=== PATIENT | male | born 1990 | race Caucasian/White ===

== ENCOUNTER 2017-02-11 15:40 | Inpatient (IN) | payer MEDICAID, OTHER ==
--- NOTE | 2017-02-11 16:57 | EDPHY ---
H & P Stated Complaint: cellulitis l arm/elbow x 4 days Source: Patient Exam Limitations: No limitations - Personal History Current Tetanus/Diphtheria Vaccine: No - Medical/Surgical History Hx Asthma: No Hx Chronic Respiratory Disease: No Hx Diabetes: No Hx Cardiac Disease: No Hx Renal Disease: No Hx Cirrhosis: No Hx Alcoholism: No Hx HIV/AIDS: No Hx Splenectomy or Spleen Trauma: No Other PMH: denies - Family History Significant Family History: No pertinent family hx - Social History Smoking Status: Never smoked Time Seen by Provider: 02/11/17 16:10 HPI/ROS: CHIEF COMPLAINT: left arm pain HISTORY OF PRESENT ILLNESS: 26-year-old male presents emergency department complaining of left arm pain worsening over the past 6 days. Patient reports 8 days ago got a small burn on his arm from an of an at work, 6 days ago he was lifting something heavy and felt a mild strain in his inner left upper arm. Patient reports over the last 5 days he has increasing redness, pain, swelling. He reports intermittent fevers over the last 5 days up to 101. Patient is [id number], he denies any trauma. Nausea, vomiting or diarrhea, no abdominal pain. No numbness or tingling in his arm. Patient denies IV drug use. REVIEW OF SYSTEMS: A comprehensive 10 point review of systems is otherwise negative aside from elements mentioned in the history of present illness. (Keke Maldonado) - Physical Exam Exam: Physical Exam Gen: Alert and Oriented, NAD HEENT: PERRL, moist mucous membranes NECK: no meningismus CV: regular rate and regular rhythm PULM: CTAB, no wheezes ABDOMEN: soft, non tender to palpation, BS present BACK: No CVA tenderness NEURO: Neurologically grossly intact EXTREMITIES: Left upper arm with diffuse swelling, induration, erythema that extends down into elbow and midway down forearm, tenderness to palpation. Patient lacks 10 degrees of extension and 20 degrees of flexion in elbow due to pain. 2+ radial pulses, sensation intact to light touch SKIN: 1 cm x 1 cm area of erythema with central scab to left upper arm PSYCH: answers questions appropriately. (Keke Maldonado) Constitutional: Initial Vital Signs Temperature (C) 36.6 C 02/11/17 15:44 Heart Rate 80 02/11/17 15:44 Respiratory Rate 16 02/11/17 15:44 Blood Pressure 129/65 H 02/11/17 15:44 O2 Sat (%) 98 02/11/17 15:44 O2 Delivery Mode Room Air Allergies/Adverse Reactions: No Known Allergies Allergy (Verified 02/11/17 15:43) Home Medications: Medication Instructions Recorded NK [No Known Home Meds] 02/11/17 Medical Decision Making - Diagnostics Imaging: Discussed imaging studies w/ ornithology teacher Radiologist, I viewed and interpreted images myself - Diagnostics Imaging Results: Imaging Impressions Upper Extremity MRI 02/11/17 17:32 Impression: Large lobulated septated fluid collection between the humerus and the anterior and medial aspect of the triceps muscle as above. With the thick rim enhancement and adjacent significant inflammatory change in the muscle and reactive lymphadenopathy of the axilla, this is more likely abscess than hematoma. Significant adjacent myositis of the surrounding musculature, most severe in the triceps. Additionally, there may be a component of partial tear of the proximal triceps. Mild glenohumeral joint effusion which may be reactionary. Enlarged left axillary lymph nodes. Cellulitis. ED Course/Re-evaluation: IV established, CBC, chemistry panel, blood cultures ordered. I have ordered an ultrasound to rule out a DVT and an x-ray to evaluate for gas. CBC shows an elevated white blood cell count at 27,000, chemistry panel unremarkable aside from a potassium of 3.2. Blood cultures are pending. Ultrasound is negative for DVT though shows a fluid collection. X-ray shows no evidence of subcutaneous gas. MRI is ordered to further evaluate fluid collection and rule out necrotizing fasciitis. The patient is given 1 g of vancomycin. MRI results shows a fluid collection 20 cm x 7 cm x 5 cm from shoulder to elbow on left arm. 810pm- Dr. Hernández consulted. He will come see the patient. 9pm-patient will be going to the OR to left arm debrided. (Keke Maldonado) Differential Diagnosis: Diagnosis considered but not limited to hematoma, abscess, necrotizing fasciitis , muscle strain. (Keke Maldonado) Other Provider: I personally examined this patient and supervised the treatment plan. (Ayush Roblero) - Data Points Laboratory Results: Laboratory Results 02/11/17 17:05 02/11/17 17:05 Medications Given: Discontinued Medications Hydromorphone HCl (Dilaudid) 0.5 mg IVP EDNOW ONE Stop: 02/11/17 17:43 Last Admin: 02/11/17 18:00 Dose: 0.5 mg Hydromorphone HCl (Dilaudid) 1 mg IVP EDNOW ONE Stop: 02/11/17 21:00 Last Admin: 02/11/17 21:13 Dose: 1 mg Vancomycin/Sodium Chloride (Vancomycin 1 Gm (Premix)) 250 mls @ 250 mls/hr IV EDNOW ONE PRN Reason: Protocol Stop: 02/11/17 18:26 Last Admin: 02/11/17 17:59 Dose: 250 mls Lorazepam (Ativan Injection) 1 mg IVP EDNOW ONE Stop: 02/11/17 17:44 Last Admin: 02/11/17 18:00 Dose: 1 mg Ondansetron HCl (Zofran) 4 mg IVP ONCE ONE Stop: 02/11/17 22:04 Last Admin: 02/11/17 21:40 Dose: 4 mg Departure - Departure Disposition: To OP Cath/Surgery Clinical Impression: Abscess of left upper extremity Condition: Fair
[2017-02-11 17:15] LABS: ADD DIFF? YES; ADD MORPH? NO; ADD SCAN? NO; ATYPICAL LYMPHOCYTE FLAG 20 (0-99); FRAGMENT RBC FLAG 0 (0-99); HEMOGLOBIN 12.6 g/dL (13.7-17.5); LEFT SHIFT FLG 80 (0-99); LIPEMIA HEMOLYSIS FLAG 90 (0-99); MEAN CELL HEMOGLOBIN 26.9 pg (27.9-34.1); MEAN CELL HEMOGLOBIN CONCENTR. 34.1 g/dL (32.4-36.7); MEAN CELL VOLUME 79.1 fL (81.5-99.8); MEAN PLATELET VOLUME 8.8 fL (8.7-11.7); PLATELET CLUMPS FLAG 10 (0-99); PLATELET COUNT 293 10^3/uL (150-400); RED BLOOD CELL COUNT 4.68 10^6/uL (4.40-6.38); RED CELL DISTRIBUTION WIDTH 14.3 % (11.5-15.2)
[2017-02-11] MEDS ORDERED: VANCOMYCIN HCL/NORMAL SALINE 250 ML IV ONE (17:27)
[2017-02-11 17:28] LABS: ANION GAP 10 mEq/L (8-16); CALCIUM 8.9 mg/dL (8.5-10.4); CARBON DIOXIDE 29 mEq/l (22-31); CHLORIDE 100 mEq/L (97-110); CREATININE 0.7 mg/dL (0.7-1.3); GLOMERULAR FILTRATION RATE > 60; GLUCOSE 97 mg/dL (70-100); POTASSIUM 3.2 mEq/L (3.5-5.2); SODIUM 139 mEq/L (134-144)
[2017-02-11] MEDS ORDERED: HYDROmorphONE/DILAUDID 1 MG/ML SYR IVP ONE ×2 (17:42→20:59)
[2017-02-11] MEDS ORDERED: LORazepam 2 MG/ML INJ IVP ONE (17:43)
[2017-02-11 18:03] LABS: HYPOCHROMIA 1+; MICROCYTES 1+; TOXIC GRANULATION PRESENT; TOXIC VACUOLIZATION PRESENT
[2017-02-11 18:04] LABS: PLATELET ESTIMATE ADEQUATE (ADEQ)
[2017-02-11] MEDS ORDERED: GADOBUTROL 10 ML VIAL IVP ONE (19:11)
[2017-02-11] MEDS ORDERED: ONDANSETRON 4 MG/2 ML VIAL ONE (21:42)
[2017-02-11] MEDS ORDERED: ONDANSETRON 4 MG/2 ML VIAL IVP ONE (22:03)
[2017-02-11] MEDS ORDERED: MIDAZOLAM 2 MG/2 ML VIAL ONE (22:05)
[2017-02-11] MEDS ORDERED: PROPOFOL 200 MG/20 ML VIAL ONE (22:11)
[2017-02-11] MEDS ORDERED: fentaNYL 100 MCG/2 ML INJ ONE ×4 (22:11→23:52)
[2017-02-11] MEDS ORDERED: METOCLOPRAMIDE 10 MG/2 ML VIAL ONE (22:12)
[2017-02-11] MEDS ORDERED: LIDOCAINE 2% 100 MG/5 ML SYR ONE (22:12)
[2017-02-11] MEDS ORDERED: RANITIDINE 50 MG/2 ML VIAL ONE (22:12)
--- NOTE | 2017-02-12 00:06 | POSTOPPROG ---
Post Op Note Date of Operation: 02/12/17 Surgeon: Fredo Hernández Anesthesiologist: francisca Anesthesia: LMA Pre-op Diagnosis: left arm inramuscular abscess Post-op Diagnosis: same Indication: same Procedure: drainage complex intramuscular abscess of arma and axilla Findings: same Inf/Abcess present in the surg proc area at time of surgery?: Yes Depth: Deep Incisional (Fascial) EBL: 100-500 Complications: none Drains: [place]
[2017-02-12] MEDS ORDERED: fentaNYL 100 MCG/2 ML INJ ONE (00:29)
[2017-02-12] MEDS ORDERED: LR 1,000 ML IV SCH (00:30)
--- NOTE | 2017-02-12 00:37 | GPN ---
[f rep st] PROCEDURE NOTE PREOP DIAGNOSIS: Complex abscess, left arm, left axilla. POSTOP DIAGNOSIS: Complex abscess, left arm, left axilla. OPERATION: Exploration and drainage of intramuscular and submuscular abscesses in left arm extending in the left axilla. INDICATIONS: The patient is a 26-year-old male, who has had progressive arm pain and swelling for several days, unclear etiology. MRI preoperatively showed complex abscess extending almost from the elbow all the way up in the medial arm slightly posterior and extending into the axilla. PROCEDURE: General anesthesia, patient positioned supine. Left shoulder bump and the arm extended 90 degrees. Aspiration with a needle in the upper arm revealed purulence, an incision was made several inches in length. Subcutaneous fat divided and the fascia and muscle was identified. The aspiration needle showed the pus was under the muscle; therefore, it was perforated with a small clamp getting into a large pus pocket. This was enlarged such that I could put a finger in there and this ran cephalad and inferiorly. This cavity was bluntly developed and several additional incisions were made in an effort to avoid a continuous incision from axilla to elbow. All gross purulence was evacuated and the highest incision that was made, which was the 3rd incision, allowed the examining finger to go up under the pectoralis major and feel the depth of the cavity in the axilla. 6 L of overhead irrigation was then used to copiously rinse out the abscess cavities. After this, [place] drains were run through these incisions from the elbow up to the mid arm and then from the mid arm up around t the axilla and then an additional [place] placed in the upper incision. The wounds were then packed with 4x4's, wrapped in multiple Kerlix and Rajat wraps. The patient tolerated the procedure well. /[id number]/MODL MTDD
[2017-02-12] MEDS: HYDROmorphONE/DILAUDID 1 MG/ML SYR IVP PRN ×2 (01:28→04:26)
[2017-02-12] MEDS: HYDROCODONE/APAP 5/325 TAB PO PRN ×3 (01:32→21:56)
[2017-02-12] MEDS: ONDANSETRON 4 MG/2 ML VIAL IVP PRN ×2 (01:50→11:07)
[2017-02-12 05:20] LABS: HEMATOCRIT 31.8 % (40.0-51.0); HEMOGLOBIN 10.9 g/dL (13.7-17.5); MEAN CELL HEMOGLOBIN 27.1 pg (27.9-34.1); MEAN CELL HEMOGLOBIN CONCENTR. 34.3 g/dL (32.4-36.7); MEAN CELL VOLUME 79.1 fL (81.5-99.8); RED BLOOD CELL COUNT 4.02 10^6/uL (4.40-6.38); RED CELL DISTRIBUTION WIDTH 14.1 % (11.5-15.2)
[2017-02-12] MEDS: VANCOMYCIN HCL/NORMAL SALINE 250 ML IV SCH ×2 (05:44→17:30)
--- NOTE | 2017-02-12 06:37 | SOAPPROG ---
SOAP Progress Note Assessment/Plan: Assessment: Plan: Subjective: 1 day post op drainage complex intramuscular abscess l arm, axilla dressing intact. afebrile despite wbc 30 k gram stain shows gpd's on vanco cont antibioitcs. check ct in am to rule out undrained fluid collections, return to or for washout.. Objective: Vital Signs Temp Pulse Resp BP Pulse Ox 36.5 C 79 16 129/68 H 99 02/12/17 03:45 02/12/17 03:45 02/12/17 03:45 02/12/17 03:45 02/12/17 03:45 Microbiology 02/11/17 22:53 Gram Stain - Final Arm - Swab 02/11/17 22:53 Mycobacterial Smear (WILLARD) - Final Arm - Swab Mycobacterial Culture - Final Laboratory Results 02/12/17 05:02 02/11/17 02/12/17 02/13/17 05:59 05:59 05:59 Intake Total 2706 Output Total 850 Balance 1856 ICD10 Worksheet Patient Problems: Problems Problem Status Onset Abscess of left upper extremity Acute
--- NOTE | 2017-02-12 06:42 | SOAPPROG ---
SOAP Progress Note Assessment/Plan: Assessment: Plan: Objective: Vital Signs Temp Pulse Resp BP Pulse Ox 36.5 C 79 16 129/68 H 99 02/12/17 03:45 02/12/17 03:45 02/12/17 03:45 02/12/17 03:45 02/12/17 03:45 Microbiology 02/11/17 22:53 Gram Stain - Final Arm - Swab 02/11/17 22:53 Mycobacterial Smear (WILLARD) - Final Arm - Swab Mycobacterial Culture - Final Laboratory Results 02/12/17 05:02 02/11/17 02/12/17 02/13/17 05:59 05:59 05:59 Intake Total 2706 Output Total 850 Balance 1856 note- pt anemic on admit with hct 37, mcv 79, abdnormal rbc morphology. no explanation. stes he has been eating poorly because of financial concrns. ICD10 Worksheet Patient Problems: Problems Problem Status Onset Abscess of left upper extremity Acute
[2017-02-12 17:54] LABS: % SATURATION 12 % (20-55); TOTAL IRON BINDING CAPACITY 173 ug/dL (260-490)
[2017-02-12 19:28] LABS: COLOR COLORLESS; LEUKOCYTE ESTERASE,URINE NEGATIVE (NEGATIVE); NITRITE,URINE NEGATIVE (NEGATIVE)
--- NOTE | 2017-02-12 21:24 | GCON ---
[f rep st] CONSULTATION INFECTIOUS DISEASE CONSULTATION DATE OF CONSULTATION: 02/12/2017 REFERRING PHYSICIAN: Fredo Hernández MD REASON FOR CONSULTATION: Left upper extremity abscess. HISTORY OF PRESENT ILLNESS: A 26-year-old male who was in his usual state of health until approximately 6 days prior to admission when he started developing progressively worsening left arm pain. This was preceded by picking up a large container of ice cream and hurting his arm. Simultaneously overlapping this, the symptoms were nasal congestion, sore throat, and malaise. His left arm continued to increase in size and became more painful, and he developed fevers to 102 with associated malaise. Patient delayed evaluation in the emergency room for fear of cough associated with this, but he subsequently presented last night and was found to have an enormous abscess in the longest dimension of 20 cm. Patient also was found to have a significant leukocytosis. Patient was fairly rapidly taken to the operating room where he underwent extensive debridement of his left upper arm. G stain from the sample in the OR was positive for gram-positive cocci. Patient was empirically started on IV vancomycin. Patient feels better. In addition to infection in his left upper extremity, patient has had 2 years of testicular pain and dysuria of unclear etiology. He has been seen by multiple urologists without a specific diagnosis. Patient has had unprotected sex and possibly had exposure to chlamydia several years ago. Patient is foggy regarding potential treatment. In addition, patient was noted to have a microcytic anemia on lab work and questioning directed regarding this finding includes chronic anorexia and some mid epigastric pain. He denies bright red blood per rectum or melena. He denies a significant amount of weight loss. Patient eats 1-2 meals daily, but his meals are primarily composed of meat. He denies shortness of breath, cough, PND, or orthopnea. No lower extremity edema. No joint pain. No rashes. Patient does have significant emotional distress regarding , suicide of a friend several years ago, and past break up with girlfriend. Patient currently is living with a woman, whom he considers his girlfriend. PAST MEDICAL HISTORY/PAST SURGICAL HISTORY: Tonsillectomy and adenoidectomy, depression and epididymitis. SOCIAL HISTORY: Patient is heterosexual and is currently in a relationship. No tobacco. Occasional marijuana use. No alcohol. No IV drugs. Patient works at [employer]. He grew up in [place] and moved to [place] approximately 6 years ago. ALLERGIES: NKDA. MEDICATIONS: Vancomycin 1 g IV q.12. REVIEW OF SYSTEMS: A complete 10-point review of systems was performed and is negative except as mentioned multiple positives identified and mentioned in the HPI. PHYSICAL EXAM: VITAL SIGNS: Blood pressure 131/70, heart rate is 78, respiratory rate 18, saturation 100% on 2 L, temperature 37.0. GENERAL: This is a young male sitting up in bed in mild emotional distress, tearful. HEENT: No conjunctival hemorrhages. Oropharynx fair dentition. Dry mucous membranes. NECK: Supple. No lymphadenopathy. CARDIOVASCULAR: Regular rate and rhythm. No murmurs. CHEST: Clear to auscultation bilaterally. ABDOMEN: Mild discomfort to palpation in the suprapubic region due to full bladder. EXTREMITIES: No clubbing, cyanosis, or edema. NEUROLOGIC: He is alert and oriented x4. Moving all 4 extremities equally. Mood is depressed. SKIN: No rashes. Is notable for pallor. LABORATORY DATA: Creatinine 0.7, white count is 30,000, hematocrit 31, platelets of 260, MCV is 79. On admission, the patient had 79% neutrophils. Blood cultures are pending and culture from the operating room is pending. IMAGING: As per HPI. ASSESSMENT AND PLAN: This is a 26-year-old male with minimal past medical history who presents with progressive left arm swelling and found to have an enormous abscess in his left upper arm status post initial incision and drainage. Gram stain suggestive of Staphylococcus versus Streptococcus. Potential portal of entry related to direct extension from trauma lifting ice cream bucket but also simultaneous sore throat could be suggestive of disseminated disease due to streptococcus. ASSESSMENT 1. Large left upper extremity abscess. 2. Microcytic anemia. 3. Chronic dysuria and testicular pain. Differential diagnosis includes chlamydia, gonorrhea, and other causes of urethritis, non-gonococcal urethritis including Mycobacterium genitalium, Trichomonas, etc. Also could consider inflammatory conditions such as Amy's syndrome, but patient does not have other components of disease. RECOMMENDATIONS: 1. Will await cultures with left upper arm abscess, reasonable to consider continue coverage of MRSA with vancomycin 1 g IV q.12. 2. Would evaluate that microcytic anemia with iron studies, B12, and folate. Will consider GI consult depending on result. 3. STD testing including gonorrhea, chlamydia, syphilis, and HIV screen to evaluate urethritis 4. Agree with repeat imaging to assess adequacy of debridement of left upper extremity large abscess. Patient back to the OR tomorrow for further debridement. Thank you for this consultation. Time was 75 minutes. Greater than 50% time spent with education and counseling. /[id number]/MODL MTDD
--- NOTE | 2017-02-12 22:09 | PCMIDPN ---
Assessment/Plan: Called with blood cultures positive for GAS. Also abscess culture GAS. DC Vancomycin and vanco T Start Cefazolin 2gm IV q8 Objective: Vital Signs Temp Pulse Resp BP Pulse Ox 37.1 C 89 18 121/67 H 98 02/12/17 21:48 02/12/17 20:00 02/12/17 20:00 02/12/17 20:00 02/12/17 20:00 Microbiology 02/11/17 22:53 Gram Stain - Final Arm - Swab 02/11/17 22:53 Mycobacterial Smear (WILLARD) - Final Arm - Swab Mycobacterial Culture - Final Laboratory Results 02/12/17 05:02 02/11/17 02/12/17 02/13/17 05:59 05:59 05:59 Intake Total 9730 1316 Output Total 007 2764 Balance 4716 -8283 ICD10 Worksheet Patient Problems: Problems Problem Status Onset Abscess of left upper extremity Acute
[2017-02-12] MEDS: ceFAZolin 2 GM/DEXTROSE 100 ML IV SCH (22:31)
[2017-02-13] MEDS: HYDROCODONE/APAP 5/325 TAB PO PRN (02:17)
[2017-02-13] MEDS: HYDROmorphONE/DILAUDID 1 MG/ML SYR IVP PRN ×2 (05:20→09:57)
[2017-02-13] MEDS: ONDANSETRON 4 MG/2 ML VIAL IVP PRN ×2 (05:20→15:30)
[2017-02-13] MEDS: ceFAZolin 2 GM/DEXTROSE 100 ML IV SCH ×3 (05:21→21:04)
[2017-02-13 05:42] LABS: HEMATOCRIT 30.5 % (40.0-51.0); HEMOGLOBIN 10.5 g/dL (13.7-17.5); MEAN CELL HEMOGLOBIN 27.1 pg (27.9-34.1); MEAN CELL HEMOGLOBIN CONCENTR. 34.4 g/dL (32.4-36.7); MEAN CELL VOLUME 78.8 fL (81.5-99.8); RED BLOOD CELL COUNT 3.87 10^6/uL (4.40-6.38); RED CELL DISTRIBUTION WIDTH 14.1 % (11.5-15.2)
[2017-02-13 05:56] LABS: ALANINE AMINOTRANSFERASE 50 IU/L (21-72); ALBUMIN 2.8 g/dL (3.5-5.0); ALKALINE PHOSPHATASE 87 IU/L (38-126); ANION GAP 8 mEq/L (8-16); ASPARTATE AMINOTRANSFERASE 22 IU/L (17-59); BILIRUBIN,TOTAL 0.7 mg/dL (0.1-1.4); CALCIUM 8.5 mg/dL (8.5-10.4); CARBON DIOXIDE 26 mEq/l (22-31); CHLORIDE 104 mEq/L (97-110); CREATININE 0.7 mg/dL (0.7-1.3); GLOMERULAR FILTRATION RATE > 60; GLUCOSE 97 mg/dL (70-100); POTASSIUM 3.6 mEq/L (3.5-5.2); SODIUM 138 mEq/L (134-144); TOTAL PROTEIN 6.2 g/dL (6.3-8.2)
[2017-02-13] MEDS ORDERED: POLYMYXIN B SULFATE 500,000 UNIT/10 ML SYR IRR ONE (08:26)
[2017-02-13] MEDS ORDERED: BACITRACIN 50,000 UNITS/10 ML SYR IRR ONE (08:26)
[2017-02-13] MEDS ORDERED: BUPIVACAINE 0.5% 30 ML SDV ONE ×2 (08:26→11:02)
[2017-02-13] MEDS ORDERED: fentaNYL 100 MCG/2 ML INJ ONE ×3 (10:08→13:05)
[2017-02-13] MEDS ORDERED: IOPAMIDOL (ISOVUE-300) 100 ML BTL ONE (10:26)
[2017-02-13] MEDS ORDERED: LIDOCAINE 1% 300 MG/30 ML SDV ONE (11:02)
[2017-02-13] MEDS ORDERED: SODIUM BICARBONATE 10 MEQ/10 ML SYR IVP ONE (11:02)
[2017-02-13] MEDS ORDERED: MIDAZOLAM 2 MG/2 ML VIAL ONE (11:23)
[2017-02-13] MEDS ORDERED: PROPOFOL 200 MG/20 ML VIAL ONE (12:15)
[2017-02-13 12:35] LABS: CHLAMYDIA AMPLIFICATION GENPRB NEGATIVE (NEGATIVE)
--- NOTE | 2017-02-13 12:40 | POSTOPPROG ---
Post Op Note Date of Operation: 02/13/17 Surgeon: Fredo Hernández Anesthesia: LMA Pre-op Diagnosis: left arm abscess Post-op Diagnosis: same Indication: same Procedure: irrigation, dressing change left arm Inf/Abcess present in the surg proc area at time of surgery?: No EBL: Minimal Drains: [place]
[2017-02-13] MEDS ORDERED: HYDROmorphONE/DILAUDID 1 MG/ML SYR ONE (12:57)
--- NOTE | 2017-02-13 13:18 | GOP ---
[f rep st] OPERATIVE REPORT DATE OF OPERATION: SURGEON: Fredo Hernández MD PREOPERATIVE DIAGNOSIS: Left arm abscess. POSTOPERATIVE DIAGNOSIS: Left arm abscess. PROCEDURE PERFORMED: Drainage and dressing change, left arm abscess. FINDINGS: INDICATIONS: 26-year-old male with an extensive intramuscular abscess, extending from the elbow to the axilla in the left arm, group A strep. DESCRIPTION OF PROCEDURE: General anesthetic, the left arm unwrapped from its previous dressing, an d the [place] drains that had been placed through the wound were removed. The wound cavities were t hen digitally probed, then irrigated with 3 L of overhead irrigation. There was no further purulenc e noted. [place] drains were again threaded through the various compartmentalized abscess cavities and then the arm wrapped in a bulky gauze dressing and VANESSA wrap. The patient tolerated procedure we ll. /[id number]/MODL
[2017-02-13] MEDS ORDERED: PROMETHAZINE HCL 25 MG/ML INJ IVP PRN (14:10)
[2017-02-13] MEDS ORDERED: NALOXONE HCL 0.4 MG/ML INJ IVP PRN (14:11)
[2017-02-13] MEDS: morphINE PCA 30 MG/30 ML PCA IV PRN (14:27)
--- NOTE | 2017-02-13 18:15 | PCMIDPN ---
Assessment/Plan: Assessment: Left upper extremity abscess status post incision and drainage. Group a strep in culture. On cefazolin 2 g IV q.8 hours. Overall doing better but continues to be in a lot of pain. Plan to continue the cefazolin monotherapy and monitor his symptoms. Plan: 1. Continue cefazolin 2 g IV q.8 hours. 2. Monitor appearance of operative site. 3. Hopefully can switch to oral antibiotics upon discharge. 4. Continue pain control. Subjective: Patient is resting in his hospital bed. He complains of significant left upper extremity upper arm and shoulder pain. It is also tracking into his chest a little bit. No fevers or chills. Objective: Cefazolin #2 Vital Signs Temp Pulse Resp BP Pulse Ox 36.8 C 92 16 132/80 H 99 02/13/17 17:16 02/13/17 17:16 02/13/17 17:16 02/13/17 17:16 02/13/17 17:16 Microbiology 02/11/17 22:53 Gram Stain - Final Arm - Swab 02/11/17 22:53 Mycobacterial Smear (WILLARD) - Final Arm - Swab Mycobacterial Culture - Final Laboratory Results 02/13/17 05:31 02/13/17 05:31 02/12/17 02/13/17 02/14/17 05:59 05:59 05:59 Intake Total 2706 2438 1800 Output Total 850 3950 375 Balance 1856 -1512 1425 - Physical Exam General Appearance: WD/WN, alert, no apparent distress, thin, non-toxic Respiratory: lungs clear, normal breath sounds, No respiratory distress Cardiac/Chest: regular rate, rhythm, No tachycardia Extremities: No non-tender, No normal inspection (Left upper extremity postoperative.) Skin: normal color, warm/dry, No rash Neuro/Psych: alert, normal mood/affect, oriented x 3 ICD10 Worksheet Patient Problems: Problems Problem Status Onset Abscess of left upper extremity Acute
[2017-02-14] MEDS: morphINE PCA 30 MG/30 ML PCA IV PRN (00:22)
[2017-02-14] MEDS: ceFAZolin 2 GM/DEXTROSE 100 ML IV SCH ×3 (05:32→21:28)
[2017-02-14] MEDS: HYDROmorphONE/DILAUDID 1 MG/ML SYR IVP PRN ×6 (09:26→22:34)
--- NOTE | 2017-02-14 09:49 | PCMIDPN ---
Assessment/Plan: 1. left upper extremity abscess secondary to group a strep status post incision and drainage: CT scan shows no residual abscess. Patient continues to have a fair amount of pain. Blood cultures are negative. Continue Ancef. HIV testing negative . I did not unwrap his wound today, but explained to the patient I would need to look at it tomorrow. 2. dysuria: Etiology unclear. The patient and his father states that he has had an extensive workup in the past, but nobody can " figure it out." Will obtain urine for mycoplasma genitalium, urea plasma, and trichomoniasis testing. Urinalysis fairly underwhelming, with 1+ blood without red blood cells. Subjective: Extremely tired. Did not sleep secondary to inadequate pain control. No diarrhea on the antibiotics. I met his father today, who is present in the room. Patient's father tells me that his son has struggled for the past 10 years with anemia, daily morning emesis, and poor nutrition. He states that he has seen multiple physicians and no one can figure it out. Objective: Ancef 2 g IV q.8 hours day 3. Afebrile Vital Signs Temp Pulse Resp BP Pulse Ox 36.6 C 76 14 112/59 L 95 02/14/17 09:00 02/14/17 09:00 02/14/17 09:00 02/14/17 09:00 02/14/17 09:00 Microbiology 02/11/17 22:53 Gram Stain - Final Arm - Swab Laboratory Results 02/13/17 05:31 02/13/17 05:31 02/13/17 02/14/17 02/15/17 05:59 05:59 05:59 Intake Total 2414 3300 Output Total 5666 6064 Balance -7982 -3061 blood cultures negative Arm: 3+ group a strep HIV testing negative Syphilis IgG negative, urine gonorrhea and chlamydia screening negative - Physical Exam General Appearance: thin, other ( pale, looks tired) EENT: No tonsillar exudate, No thrush Respiratory: lungs clear Cardiac/Chest: regular rate, rhythm, No diastolic murmur, No systolic murmur Extremities: other ( left upper extremity wrapped ; I did not take the dressing down) Abdomen: non-tender, soft Skin: No rash ICD10 Worksheet Patient Problems: Problems Problem Status Onset Abscess of left upper extremity Acute
[2017-02-14] MEDS: ONDANSETRON 4 MG/2 ML VIAL IVP PRN (14:59)
--- NOTE | 2017-02-14 22:31 | SOAPPROG ---
SOAP Progress Note Assessment/Plan: Assessment/Plan: - Patient seen for Dr Higgins - Pain still seems to be an issue but he is currently comfortable. Nausea an issue as well but appears to be more of a chronic issue. - Patients arm is warm, nonerythematous and maybe a little swollen. Dressing placed in OR yesterday c/d/i - Gisela to see in AM 02/14/17 22:29 Subjective: Sitting in bed, resting Objective: Vital Signs Temp Pulse Resp BP Pulse Ox 36.8 C 83 17 115/56 L 97 02/14/17 17:00 02/14/17 17:00 02/14/17 17:00 02/14/17 17:00 02/14/17 17:00 Microbiology 02/11/17 22:53 Gram Stain - Final Arm - Swab Laboratory Results 02/13/17 05:31 02/13/17 05:31 02/13/17 02/14/17 02/15/17 05:59 05:59 05:59 Intake Total 0573 5454 691 Output Total 3551 5291 300 Balance -1512 -2360 50 ICD10 Worksheet Patient Problems: Problems Problem Status Onset Abscess of left upper extremity Acute
[2017-02-15] MEDS: HYDROmorphONE/DILAUDID 1 MG/ML SYR IVP PRN ×9 (00:40→18:36)
[2017-02-15] MEDS: ONDANSETRON 4 MG/2 ML VIAL IVP PRN (03:22)
[2017-02-15] MEDS: ceFAZolin 2 GM/DEXTROSE 100 ML IV SCH ×3 (05:04→22:19)
--- NOTE | 2017-02-15 08:17 | PCMIDPN ---
Assessment/Plan: 1. left upper extremity abscess secondary to group a strep status post incision and drainage: I did partially unwrap the dressing, but the gauze was tethered to his skin so I did not proceed further. Will wait for Dr. Hernández. Patient has a significant amount of pain. I could not appreciate any surrounding cellulitis, and the patient was able to move his shoulder joint without discomfort at the joint, per se. Continue Ancef. 2. dysuria: Mycoplasma genitalium, Trichomonas, Ureaplasma testing pending 3. daily nausea/vomiting: Patient states he had a workup for years ago that included an EGD. He was told to take daily omeprazole. Will obtain celiac panel. Consider GI consult. 02/15/17 08:14 Subjective: Patient is extremely tearful this morning. His father reports that he is barely eating, and is really unable to keep food down at all. Has not had a bowel movement in several days. Patient's father states that the nausea and vomiting is something that preceded this hospital admission, and has been going on for years now. Objective: Ancef 2 g IV q.8 hours day 4. T-max 37degrees for Vital Signs Temp Pulse Resp BP Pulse Ox 36.7 C 61 16 110/52 L 96 02/15/17 04:00 02/15/17 04:00 02/15/17 04:00 02/15/17 04:00 02/15/17 04:00 Microbiology 02/11/17 22:53 Gram Stain - Final Arm - Swab Laboratory Results 02/13/17 05:31 02/13/17 05:31 02/14/17 02/15/17 02/16/17 05:59 05:59 05:59 Intake Total 3300 350 Output Total 4775 1800 Balance -1475 -1450 no new microbiology - Physical Exam General Appearance: thin, other ( pale) EENT: No scleral icterus, No thrush Respiratory: lungs clear Cardiac/Chest: regular rate, rhythm Extremities: other ( left upper extremity dressing on wrapped. Gauze is tethered to the skin. No significant edema or evidence of surrounding cellulitis. The patient is able to raise and lower his arm without pain in the joint.) Skin: No rash ICD10 Worksheet Patient Problems: Problems Problem Status Onset Abscess of left upper extremity Acute
[2017-02-15 08:56] LABS: ADD DIFF? YES; ADD MORPH? NO; ADD SCAN? NO; ATYPICAL LYMPHOCYTE FLAG 30 (0-99); FRAGMENT RBC FLAG 0 (0-99); HEMATOCRIT 30.6 % (40.0-51.0); HEMOGLOBIN 10.4 g/dL (13.7-17.5); LEFT SHIFT FLG 40 (0-99); LIPEMIA HEMOLYSIS FLAG 90 (0-99); MEAN CELL HEMOGLOBIN 27.2 pg (27.9-34.1); MEAN CELL VOLUME 79.9 fL (81.5-99.8); MEAN PLATELET VOLUME 8.6 fL (8.7-11.7); PLATELET CLUMPS FLAG 0 (0-99); PLATELET COUNT 358 10^3/uL (150-400); RED BLOOD CELL COUNT 3.83 10^6/uL (4.40-6.38); RED CELL DISTRIBUTION WIDTH 13.6 % (11.5-15.2)
[2017-02-15 09:33] LABS: ALANINE AMINOTRANSFERASE 92 IU/L (21-72); ALBUMIN 3.2 g/dL (3.5-5.0); ALKALINE PHOSPHATASE 101 IU/L (38-126); ANION GAP 10 mEq/L (8-16); ASPARTATE AMINOTRANSFERASE 105 IU/L (17-59); BILIRUBIN,TOTAL 0.6 mg/dL (0.1-1.4); CALCIUM 8.7 mg/dL (8.5-10.4); CARBON DIOXIDE 29 mEq/l (22-31); CHLORIDE 100 mEq/L (97-110); CREATININE 0.8 mg/dL (0.7-1.3); GLOMERULAR FILTRATION RATE > 60; GLUCOSE 97 mg/dL (70-100); POTASSIUM 4.1 mEq/L (3.5-5.2); SODIUM 139 mEq/L (134-144); TOTAL PROTEIN 6.7 g/dL (6.3-8.2)
[2017-02-15 10:30] LABS: MICROCYTES 1+; PLATELET ESTIMATE ADEQUATE (ADEQ)
--- NOTE | 2017-02-15 11:01 | SOAPPROG ---
SOAP Progress Note Assessment/Plan: Assessment: Plan: Subjective: vss, af wbc down to 9.9 1 radha removed, 2 others advanced. no purulence pain still out of proportion to wounds. eating poorly- apparently vomits after meals. had previoius egd and gi eval, no dx. will have gi see friday if this continues. wounds may be amenable to secondary closure in the or later this week. Objective: Vital Signs Temp Pulse Resp BP Pulse Ox 37.1 C 80 18 122/61 H 97 02/15/17 08:00 02/15/17 08:00 02/15/17 08:00 02/15/17 08:00 02/15/17 08:00 Microbiology 02/11/17 22:53 Gram Stain - Final Arm - Swab Laboratory Results 02/15/17 08:46 02/15/17 08:46 02/14/17 02/15/17 02/16/17 05:59 05:59 05:59 Intake Total 3300 350 Output Total [id number] [facility] [id number] ICD10 Worksheet Patient Problems: Problems Problem Status Onset Abscess of left upper extremity Acute
[2017-02-15] MEDS: HYDROCODONE/APAP 5/325 TAB PO PRN ×3 (17:41→22:03)
[2017-02-16] MEDS: HYDROCODONE/APAP 5/325 TAB PO PRN ×4 (03:13→19:37)
[2017-02-16] MEDS: ceFAZolin 2 GM/DEXTROSE 100 ML IV SCH ×3 (05:31→21:58)
--- NOTE | 2017-02-16 07:54 | PCMIDPN ---
Assessment/Plan: 1. left upper extremity abscess secondary to group a strep status post incision and drainage (no evidence of necrotizing fasciitis): 1 [place] was discontinued yesterday, 2 remain. Continue Ancef while in-house. No new recommendations. 2. dysuria: Mycoplasma genitalium, Trichomonas, Ureaplasma testing pending 3. daily nausea/vomiting: Patient states he had a workup for years ago that included an EGD. He was told to take daily omeprazole.celiac panel pending. Consider GI consult, although he was able to keep food down yesterday! Subjective: Seems better today. Tells me that he kept food down yesterday and ate quite a bit! No diarrhea. Dressing changed yesterday by Dr. Hernández, who felt the things looked good overall, as did I. 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 Objective: Ancef 2 g IV q.8 hours day 5. T-max 37.2degrees Vital Signs Temp Pulse Resp BP Pulse Ox 37.2 C 97 20 112/62 92 02/15/17 23:08 02/15/17 23:08 02/15/17 23:08 02/15/17 23:08 02/15/17 23:08 Microbiology 02/11/17 22:53 Gram Stain - Final Arm - Swab Laboratory Results 02/15/17 08:46 02/15/17 08:46 02/15/17 02/16/17 02/17/17 05:59 05:59 05:59 Intake Total 350 1750 Output Total 1800 30 Balance -1450 1720 No new microbiology - Physical Exam General Appearance: alert, no apparent distress Cardiac/Chest: regular rate, rhythm, No systolic murmur Extremities: other (Left arm is wrapped. I did not take the dressing down today.) Skin: No rash ICD10 Worksheet Patient Problems: Problems Problem Status Onset Abscess of left upper extremity Acute
[2017-02-16] MEDS: ONDANSETRON 4 MG/2 ML VIAL IVP PRN (12:53)
--- NOTE | 2017-02-16 13:00 | SOAPPROG ---
SOAP Progress Note Assessment/Plan: Assessment: Plan: Subjective: vss, af wound examined- all radha drains removed. wound edges of larger lower incision not granulating very well. possibly secondayry to nutritinal status. may benefit from wund vac. will have nurses see tomorrow or friday. not capable of self care at home yet. Objective: Vital Signs Temp Pulse Resp BP Pulse Ox 36.7 C 67 16 111/60 95 02/16/17 12:00 02/16/17 12:00 02/16/17 12:00 02/16/17 12:00 02/16/17 12:00 Microbiology 02/11/17 22:53 Gram Stain - Final Arm - Swab Laboratory Results 02/15/17 08:46 02/15/17 08:46 02/15/17 02/16/17 02/17/17 05:59 05:59 05:59 Intake Total 350 1750 Output Total 1800 30 Balance -1450 1720 ICD10 Worksheet Patient Problems: Problems Problem Status Onset Abscess of left upper extremity Acute
[2017-02-17] MEDS: HYDROCODONE/APAP 5/325 TAB PO PRN ×5 (00:31→19:59)
[2017-02-17] MEDS: ceFAZolin 2 GM/DEXTROSE 100 ML IV SCH ×3 (05:33→21:26)
[2017-02-17] MEDS ORDERED: LORazepam 2 MG/ML INJ IV ONE (08:45)
--- NOTE | 2017-02-17 08:48 | PCMIDPN ---
Assessment/Plan: 1. left upper extremity abscess secondary to group a strep status post incision and drainage (no evidence of necrotizing fasciitis): Wound VAC to be placed right now on the largest open wound. He has 2 other smaller wounds as well. Hopefully will not require further debridement. Continue Ancef. 2. dysuria: Mycoplasma genitalium, Trichomonas, Ureaplasma testing pending 3. daily nausea/vomiting: Patient states he had a workup for years ago that included an EGD. He was told to take daily omeprazole.celiac panel pending. Consider GI consult, although he was able to keep food down over the past 2 days! 4. Elevated LFTs: Repeat today. Subjective: Delicia, the wound care nurse and I went in and removed all of his dressings. Patient is in quite a bit of pain. Objective: Ancef 2 g IV q.8 hours day 6. T-max 37.2degrees Vital Signs Temp Pulse Resp BP Pulse Ox 36.7 C 67 17 97/73 L 97 02/16/17 22:57 02/16/17 22:57 02/16/17 22:57 02/16/17 22:57 02/16/17 22:57 Laboratory Results 02/15/17 08:46 02/15/17 08:46 02/16/17 02/17/17 02/18/17 05:59 05:59 05:59 Intake Total 1750 Output Total 30 900 Balance 1720 -900 no new microbiology - Physical Exam General Appearance: cachetic, other (Crying from pain) EENT: No scleral icterus, No thrush Respiratory: lungs clear Extremities: other ( under the left axilla the patient has what looks like folliculitis type papules after his armpit was shaved. He also has some adenopathy. Left upper extremity is notable for large elliptical wound-- there is some whitish sloughing on the margins and on the muscle belly, but overall the wound looks good. He has 2 smaller wounds as well that look fine. There is no surrounding erythema to any of the wounds (no cellulitic component) . these are still quite painful. No evidence of necrotic tissue.) Abdomen: non-tender, soft Skin: other ( Folliculitis left armpit) ICD10 Worksheet Patient Problems: Problems Problem Status Onset Abscess of left upper extremity Acute
[2017-02-17] MEDS: HYDROmorphONE/DILAUDID 1 MG/ML SYR IVP PRN (09:18)
[2017-02-17] MEDS: ONDANSETRON 4 MG/2 ML VIAL IVP PRN (09:19)
--- NOTE | 2017-02-17 09:31 | WOCRNPDOC ---
SARAH Advanced Assessment Note - Skin Integrity Problem, Advanced Assess Left Upper Distal Arm Surgical Wound/Incision Dressing Type: Kerlix Dressing Description: Clean/Dry, Intact Exudate Amount: Moderate Exudate Characteristic(s): Serosanguinous Integumentary Issue Intervention: Dressing Changed Angle Wound Tissue: Painful/Tender Angle Wound Swelling: Moderate Wound Bed Color: [place], Yellow Wound Bed Constitution: Granulation Tissue (10%), Smooth Tissue (40%), Tunneling (12 oclock 12 cm), Muscle, Adhered Slough (50%) Wound Edges: Attached Site Measurement - Head-to-Toe Length X Width X Depth (cm): 9x2.6x2 Skin Integrity Problem Comment: Patient reported extreme pain during entire procedure. Patient screamed/yelled the entire dressing change and for at least 10 min after vac suction was started. Patient recieved 1 mg of ativan and 0.4 of dilauded with little reported relief. Wound cleasned with ns canister and then skin prep was applied angle wound. Draped was then applied to protect angle wound skin. A large white foam was cut to fit inside tunnel and placed there which caused the patient even more discomfort. The white foam was covered by black foam bridged from proximal wounds. Patient's father was in room for all care. Information about NPWT given to patient and father. Education unable to be completed much due to patient's state. Dr. Mtz alerted to patient's response to vac change as well as Dr. Hernández. Sheryl Wound RN also recieved direct report about this patient as she will be the wound RN doing vac change on Fri. Patient would benefit from 4% liquid lidocaine topically applied to vac foam for dressing change on Wed. Left Upper Proximal Arm Surgical Wound/Incision Dressing Type: Gauze, Kerlix Dressing Description: Clean/Dry, Intact Exudate Amount: Moderate Exudate Characteristic(s): Serosanguinous Integumentary Issue Intervention: Dressing Changed Angle Wound Swelling: Moderate Wound Bed Color: [place], Yellow Wound Bed Constitution: Smooth Tissue, Muscle, Subcutaneous Fat, Adhered Slough Site Measurement - Head-to-Toe Length X Width X Depth (cm): Posterior: 3.5x1.8x2 , Anterior: 2.1x1.7x1.5 Skin Integrity Problem Comment: Wound cleansed with ns canister and then skin prep was applied angle wound. Draped was then applied to protect angle wound skin. A medium black foam was cut to fit inside anterior wound and then bridged to posterior wound and then to distal wound where trac pad was placed. Vac working without leaks to -125 mm Hg continuous suction. Chintan CLAYTON and Mireille CLAYTON assisting.
[2017-02-17 11:48] LABS: ALANINE AMINOTRANSFERASE 55 IU/L (21-72); ALBUMIN 3.5 g/dL (3.5-5.0); ALKALINE PHOSPHATASE 92 IU/L (38-126); ANION GAP 10 mEq/L (8-16); ASPARTATE AMINOTRANSFERASE 41 IU/L (17-59); BILIRUBIN,TOTAL 0.5 mg/dL (0.1-1.4); CALCIUM 9.3 mg/dL (8.5-10.4); CARBON DIOXIDE 30 mEq/l (22-31); CHLORIDE 99 mEq/L (97-110); CREATININE 0.8 mg/dL (0.7-1.3); GLOMERULAR FILTRATION RATE > 60; GLUCOSE 101 mg/dL (70-100); POTASSIUM 4.3 mEq/L (3.5-5.2); SODIUM 139 mEq/L (134-144); TOTAL PROTEIN 7.7 g/dL (6.3-8.2)
[2017-02-17] MEDS ORDERED: LACTULOSE 20 GM/30 ML UDCUP PO PRN (12:09)
[2017-02-17] MEDS ORDERED: POLYETHYLENE GLYCOL 3350 17 GM PKT PO PRN (12:09)
[2017-02-17] MEDS ORDERED: MAGNESIUM HYDROXIDE 30 ML UDCUP PO PRN (12:09)
[2017-02-17] MEDS ORDERED: BISACODYL 10 MG SUPP PR PRN (12:09)
[2017-02-17] MEDS ORDERED: LORazepam 2 MG/ML INJ IVP PRN (15:00)
--- NOTE | 2017-02-17 15:11 | SOAPPROG ---
SOAP Progress Note Assessment/Plan: Assessment/Plan: 26 yo man s/p debridement of streptococcal infection of left proximal upper extremity vac change today with much anxiety and pain otherwise tolerating vac with oral analgesics tolerating diet afebrile WBC 9.99 from 30K no swelling/erythema good pulses progressing well appreciate ID input and wound care team management encourage oob anxiolytics around time of dressing change 02/17/17 15:11 Objective: Vital Signs Temp Pulse Resp BP Pulse Ox 36.7 C 76 18 122/66 H 99 02/16/17 22:57 02/17/17 08:00 02/17/17 08:00 02/17/17 08:00 02/17/17 08:00 Laboratory Results 02/15/17 08:46 02/17/17 11:20 02/16/17 02/17/17 02/18/17 05:59 05:59 05:59 Intake Total 1750 Output Total 30 900 Balance 1720 -900 ICD10 Worksheet Patient Problems: Problems Problem Status Onset Abscess of left upper extremity Acute
[2017-02-17] MEDS: SENNOSIDES/DOCUSATE SODIUM TAB PO SCH (19:59)
[2017-02-17 22:44] LABS: UREAPLASMA PARVUM PCR POSITIVE; UREAPLASMA PCR SPECIMEN SOURCE URINE; UREAPLASMA UREALYTICUM PCR NEGATIVE
[2017-02-18] MEDS: HYDROCODONE/APAP 5/325 TAB PO PRN ×2 (00:54→05:37)
[2017-02-18] MEDS: ceFAZolin 2 GM in D5W 100 ML IV SCH ×3 (05:38→21:53)
[2017-02-18] MEDS: SENNOSIDES/DOCUSATE SODIUM TAB PO SCH ×2 (08:11→21:54)
--- NOTE | 2017-02-18 11:39 | PCMIDPN ---
Assessment/Plan: Assessment/Plan: 1. LUE abscess secondary to Group A strep: - s/p I & D x 2. -Curently on Ancef. -blood cx ngtd -Now with wound vac in place. Will need f/u at wound care center. -LIkely change to keflex in AM 2. dysuria: -PCr positive for U. parvum -Ongoing symptoms. Will give Azithro 1g x 1. -HIV, syphillis, chlmydia, gonorrhea, mycoplasma neg. Meds Ancef 2g q8- Subjective: Afebrile. feeling better. less overall pain. has discomfort from wound vac. denies sob, abd pain or diarrhea. has small bm yesterday. Objective: Vital Signs Temp Pulse Resp BP Pulse Ox 36.4 C 59 L 16 113/63 95 02/18/17 07:47 02/18/17 07:47 02/18/17 07:47 02/18/17 07:47 02/18/17 07:47 Microbiology 02/11/17 22:53 Gram Stain - Final Arm - Swab Laboratory Results 02/15/17 08:46 02/17/17 11:20 02/17/17 02/18/17 02/19/17 05:59 05:59 05:59 Intake Total 700 Output Total 900 1500 Balance -900 -800 - Physical Exam General Appearance: alert, no apparent distress Respiratory: lungs clear Cardiac/Chest: regular rate, rhythm Extremities: No swelling Abdomen: normal bowel sounds, non-tender, soft, No distended Skin: other (lUE with wound vac.) ICD10 Worksheet Patient Problems: Problems Problem Status Onset Abscess of left upper extremity Acute
[2017-02-18] MEDS ORDERED: AZITHROMYCIN 250 MG TAB PO ONE ×2 (13:42→13:58)
[2017-02-18] MEDS: traMADol 50 MG TAB PO PRN (14:41)
[2017-02-18 16:13] LABS: MISCELLANEOUS TEST See Comments (())
[2017-02-18] MEDS ORDERED: ACETAMINOPHEN 325 MG TAB PO PRN (17:51)
[2017-02-18] MEDS ORDERED: IBUPROFEN 600 MG TAB PO PRN (17:51)
[2017-02-19] MEDS: ceFAZolin 2 GM in D5W 100 ML IV SCH ×2 (05:08→13:03)
[2017-02-19] MEDS: traMADol 50 MG TAB PO PRN ×2 (06:09→13:02)
[2017-02-19 06:14] LABS: ADD DIFF? YES; ADD MORPH? NO; ADD SCAN? NO; ATYPICAL LYMPHOCYTE FLAG 50 (0-99); FRAGMENT RBC FLAG 0 (0-99); HEMATOCRIT 34.3 % (40.0-51.0); HEMOGLOBIN 11.5 g/dL (13.7-17.5); LEFT SHIFT FLG 40 (0-99); LIPEMIA HEMOLYSIS FLAG 80 (0-99); MEAN CELL HEMOGLOBIN 27.3 pg (27.9-34.1); MEAN CELL HEMOGLOBIN CONCENTR. 33.5 g/dL (32.4-36.7); MEAN CELL VOLUME 81.3 fL (81.5-99.8); MEAN PLATELET VOLUME 8.4 fL (8.7-11.7); PLATELET CLUMPS FLAG 20 (0-99); PLATELET COUNT 500 10^3/uL (150-400); RED BLOOD CELL COUNT 4.22 10^6/uL (4.40-6.38); RED CELL DISTRIBUTION WIDTH 14.1 % (11.5-15.2)
[2017-02-19 07:01] LABS: MICROCYTES 1+; PLATELET ESTIMATE INCREASED (ADEQ)
[2017-02-19 07:18] VITALS: BP 121/71; PULSE 68; RESP 14; TEMP 97.7; O2SAT 94
[2017-02-19] MEDS ORDERED: LIDOCAINE HCL 4% TOPICAL SOLN 50ML MM SCH (08:00)
--- NOTE | 2017-02-19 08:35 | GDS ---
[f rep st] DISCHARGE SUMMARY PRESENT ILLNESS: The patient was admitted with severe left arm abscess, extending from the axilla t o the elbow. He underwent emergent exploration with drainage. Group A strep was recovered. He was maintained on vancomycin initially, and then switched to Ancef intravenously and, at the time of ghazala villanueva, this was changed to Keflex 250 p.o. q.i.d. for an additional week. He was returned to [facility] a second time for dressing change and washout. No purulence was seen at that time and, in fact, no further purulence throughout the admission. A wound VAC has been placed, and he will have avi castelan in the wound care clinic. He was also given my number and address to follow up with me p.r.n. FINAL DIAGNOSIS: Abscess, extensive, left upper extremity. OPERATIONS: As listed above. DISPOSITION: Home. FOLLOWUP: With the wound care clinic for wound VAC change Friday, Friday, Friday. DISCHARGE MEDICATIONS: Given discharge medicines of Ultram 50 mg #40, Keflex 250 #28, and, because of iron deficiency anemia noted, iron sulfate as well. Copy requested to: [facility] /[id number]/MODL
[2017-02-19] MEDS: SENNOSIDES/DOCUSATE SODIUM TAB PO SCH (10:06)
--- NOTE | 2017-02-19 12:18 | PCMIDPN ---
Assessment/Plan: Assessment/Plan: 1. LUE abscess secondary to Group A strep: - s/p I & D x 2. -Curently on Ancef. -blood cx ngtd -Now with wound vac in place. Will need f/u at wound care center. wound examined with wound care team today -Change to keflex 500mg po q6 x 7 days. -will f/u patient in wound care center on february 24. 2. Dysuria/ urethritis: -PCr positive for U. parvum -s/p Azithro 1g x 1. -HIV, syphillis, chlmydia, gonorrhea, mycoplasma neg. -if symptoms persist will give course of doxy x 7 days. -will f/u patient in wound care center on friday, february 24. Meds Ancef 2g q8- Subjective: Afebrile. denies diarrhea, abd pain. pain with wound vac change today. still with dysuria Objective: Vital Signs Temp Pulse Resp BP Pulse Ox 36.5 C 68 14 121/71 H 94 02/19/17 07:16 02/19/17 07:16 02/19/17 07:16 02/19/17 07:16 02/19/17 07:16 Microbiology 02/11/17 22:53 Gram Stain - Final Arm - Swab Laboratory Results 02/19/17 05:00 02/17/17 11:20 02/18/17 02/19/17 02/20/17 05:59 05:59 05:59 Intake Total 700 600 Output Total 1500 Balance -800 600 - Physical Exam General Appearance: alert, no apparent distress Respiratory: lungs clear Cardiac/Chest: regular rate, rhythm Extremities: No swelling Abdomen: non-tender, soft Skin: other (left arm: two wound with clean base, granulation tissue noted. no surrounding erythema. ) ICD10 Worksheet Patient Problems: Problems Problem Status Onset Abscess of left upper extremity Acute
--- NOTE | 2017-02-19 12:51 | WOCRNPDOC ---
WOCRN Advanced Assessment Note - Skin Integrity Problem, Advanced Assess Left Upper Distal Arm Surgical Wound/Incision Dressing Type: Black Vac Foam, White Vac Foam, Wound Vac Dressing Description: Intact Exudate Amount: Minimal Exudate Color: Reddish/Yellow Integumentary Issue Intervention: Dressing Changed Angle Wound Tissue: Raw (peeling), Painful/Tender Angle Wound Swelling: Mild Wound Bed Color: Red Wound Bed Constitution: Granulation Tissue, Tunneling (8.5cm @ 12 o'clock), Muscle, Subcutaneous Fat Wound Edges: Epithelizing Site Odor: None Site Measurement - Head-to-Toe Length X Width X Depth (cm): [id number] ( tunnels 8.5cm at 12 o'clock) Skin Integrity Problem Comment: rfid developer Eugene pre-medicated patient w/ both Ativan and Morphine IV, and wound RN applied Lidocaine 4% down into vac sponge w / fill needle prior to removal. Patient continued to state that he was in a great deal of pain, 10/10 despite pain relieving measures. However, as the dressing change process continued, he began to talk with nursing and demonstrate some tolerance for the procedure. Wound bed is mostly granulating tissue, w/ some muscle and subcutaneous fat visible. No necrosis or purulence noted. Tunnel that tracks 8.5cm at 12 o'clock is very narrow; this was packed with white vac foam today, and is measuring 3cm smaller than previous assessment. Angle-wound skin is peeling now that swelling in this extremity has subsided, w/ no erythema noted and only minimal swelling. Vac dressing reapplied , w/ 3 pieces of black foam total and 1 piece of white foam, set to 125mmHg low , continuous suction w/ no leaks. Patient will DC today with wound vac to this extremity, and [facility] dressing change. Left Upper Proximal Arm Surgical Wound/Incision Dressing Type: Black Vac Foam, Wound Vac Dressing Description: Intact Exudate Amount: Scant Exudate Color: Redd[place]/Yellow Exudate Characteristic(s): Serosanguinous Integumentary Issue Intervention: Dressing Changed Angle Wound Tissue: Raw (peeling) Angle Wound Swelling: Mild Wound Bed Color: Red Wound Bed Constitution: Granulation Tissue, Muscle Wound Edges: Epithelizing Site Odor: None Site Measurement - Head-to-Toe Length X Width X Depth (cm): Anterior: 1.9cmx1.4cmx1.3cm. Posterior: 2.8cmx1.4cmx1.6cm Skin Integrity Problem Comment: Two smaller wounds on proximal LUE, bridged to distal wound w/ black foam. Both sites predominantly granulation tissue, w/ no necrosis noted. Angle-wound skin is peeling r/t previous swelling, w/ no apparent erythema and mild swelling. Report given to Dr. Hernández. [facility] Danita michele.
--- NOTE | 2017-02-19 14:37 | PDIAF ---
- Diagnosis Diagnosis: left arm infection - Medication Management Discharge Medications: Medications to Continue on Transfer Cephalexin [Keflex (*)] 250 mg PO QID #28 cap 02/19/17 [Last Taken Unknown] traMADol [Ultram 50 mg (*)] 50 mg PO Q6HRS PRN #0 tab 02/19/17 [Last Taken Unknown] Discharge Medications: Refer to the Discharge Home Medication list for PRN reason. - Orders Services needed: Home Care, Physical Therapy Home Care Face to Face: I certify that this patient was under my care and that I had the required [id number] encounter meeting the encounter requirements on the discharge day. My findings support the fact that the patient is homebound as defined in CMS Chapter 7 Medicare Benefits Manual 30.1.1, The condition of the patient is such that there exists a normal inability to leave home and consequently, leaving home would require a considerable and taxing effort. Diet Recommendation: no restrictions on diet Diet Texture: Regular Texture Diet (needs follow up appt [facility] this friday) - Follow Up Care Current Providers and Referrals: NONE *PRIMARY CARE P,. [Unknown] - As per Instructions
[2017-02-19] MEDS ORDERED: CEPHALEXIN 500 MG CAP PO SCH (18:00)
[2017-02-19] MEDS ORDERED: ceFAZolin 2 GM/DEXTROSE 100 ML IV SCH (22:00)
[2017-02-19 22:13] LABS: CELIAC DISEASE INTERPRETATION See Comments; IMMUNOGLOBULIN A CELIAC 250 mg/dL (61 - 356)
== END 2017-02-19 15:49 | disposition home or self-care (01) | DRG 581 ==
LOC: F3E 02-12 00:37
PROVIDERS: ADMIT Surgery; ATTEND Surgery
PROC: 0K9800Z Drainage of Left Upper Arm Muscle with Drainage Device, Open Approach (ICD-10-PCS; principal; 2017-02-12)
PROC: 0K9800Z Drainage of Left Upper Arm Muscle with Drainage Device, Open Approach (ICD-10-PCS; 2017-02-13)
DX: L02.414 Cutaneous abscess of left upper limb (principal); B95.5 Unspecified streptococcus as the cause of diseases classified elsewhere; D50.9 Iron deficiency anemia, unspecified
CPT/HCPCS: 82607-90; 82784-90; 83516-90; 87798-90; 96365; A9585; J0690; J1170; J2001; J2060; J2250; J2270; J2405; J2550; J2704; J2765; J2780; J3010; J3370; Q9967

== ENCOUNTER 2017-07-23 10:23 | Emergency (ER) | payer MEDICAID ==
[2017-07-23 10:30] VITALS: TEMP 97.9
[2017-07-23] MEDS ORDERED: NS 1,000 ML IV ONE (10:44)
--- NOTE | 2017-07-23 10:46 | CPEKG ---
Heart Rate: 85 RR Interval: 706 P-R Interval: 156 QRSD Interval: 100 QT Interval: 368 QTC Interval: 438 P [place]: 59 QRS [place]: 68 T Wave [place]: 40 EKG Severity - NORMAL ECG - EKG Impression: SINUS RHYTHM Electronically Signed By: Moiz Morales 23-Jul-2017 13:17:01
--- NOTE | 2017-07-23 10:46 | CPEKG ---
Heart Rate: 85 RR Interval: 706 P-R Interval: 156 QRSD Interval: 100 QT Interval: 368 QTC Interval: 438 P [place]: 59 QRS [place]: 68 T Wave [place]: 40 EKG Severity - NORMAL ECG - EKG Impression: SINUS RHYTHM Electronically Signed By: Moiz Morales 23-Jul-2017 13:17:01
--- NOTE | 2017-07-23 10:49 | EDPHY ---
General - History Smoking Status: Never smoked Narrative: CHIEF COMPLAINT: Possible seizure HISTORY OF PRESENT ILLNESS: Patient arrives by EMS reports of possible seizure. Patient is amnestic to the events, thus he has unable to provide any history me. He says that the last thing he remembers was taking a shower this morning. His girlfriend, who was not at bedside, reports that he may have passed out and then fallen or it may have started to have a seizure and then fell. He struck his head on a solid object. He appear to shake from head to toe. This lasted for 1-2 minutes. EMS arrived to find him postictal but in no acute distress. He has abrasion to forehead. He complains of headache and neck pain on the side. No chest pain. No abdominal pain. No injuries anywhere else. Tetanus up-to-date. No other associated complaints or modifying factors. No previous history of seizure REVIEW OF SYSTEMS: Ten systems reviewed and are negative unless otherwise noted in the HPI PCP: No primary care physician SPECIALISTS: None PAST MEDICAL HISTORY: Urologic of uncertain etiology PAST SURGICAL HISTORY: Left upper extremity surgery SOCIAL HISTORY: Nonsmoker. No alcohol. No illicit substance use. FAMILY HISTORY: Noncontributory EXAMINATION General Appearance: Alert, no distress Head: normocephalic, abrasion to the right side of the forehead. No depression. No Oliveira sign. No raccoon eyes per Eyes: Pupils equal and round, no conjunctival pallor or injection ENT, Mouth: Mucous membranes moist uvula midline. Airway widely patent. Superficial injury to the left side of the tongue. Nonbleeding. Neck: Normal inspection, supple, non-tender Respiratory: Lungs are clear to auscultation. No wheeze, rhonchi or crackles Cardiovascular: Regular rate and rhythm. No murmur Gastrointestinal: Abdomen is soft and nontender Back: non-tender, no bony abnormalities Neurological: A&O but disoriented to scenario. GCS 15, cranial nerves 2-12 grossly intact., nonfocal, strength is symmetric in all 4 limbs. Skin: Warm and dry, no rash. Forehead abrasion. No lacerations or ecchymosis. Extremities: Nontender, no pedal edema Psychiatric: Mood and affect normal DIFFERENTIAL DIAGNOSES: Including but not limited to seizure, syncope, dehydration, substance abuse MDM: 10:50 a.m. Possible new onset seizure. The patient is amnestic to events. Does have an abrasion of forehead an injury to the tongue. He is awake and alert no acute distress. No seizure-like activity at this time. No history of seizure disorder. No drug abuse. No alcohol use or cessation. Vital signs are stable. Laboratory studies pending. CT scan of the head and cervical spine are pending. I placed him in a C-collar during my examination. 10:52 a.m. Patient re-examine. He is feeling claustrophobic ordered 1 mg Ativan IV. 11:50 a.m. Contacted by radiologist Dr. Zimmer. CT scans of the head and cervical spine are unremarkable for any acute findings. C-collar may be cleared at this time. 12:05 p.m. Evaluated the patient. His and stepmother a bed we discussed the negative CT scan and cervical spine. We discussed the laboratory. We discussed discharge home with driving and she precautions and follow up with Neurology. I would like him ambulate and thus wanted road test at this time. 12:20 p.m. Patient able to ambulate successfully on his own. We will re-evaluate 12:45 p.m. Patient has ambulated again. This time he has ambulated on his own with no difficulty. No nausea. No lightheadedness. No syncope. I walked with him myself and he appears to be stable on his feet. I did offer admission to the hospital for observation but he prefers to go home. I do feel that he is stable for discharge home. I do not feel that he has to stay at the hospital at this time. We discussed strict no driving precautions for the next 90 days or until cleared by Neurology. We discussed no other activities that would put him at harm of those around him. We discussed follow up with Neurology and primary care physician. We discussed return to the emergency department should he have another episode of seizure loss of consciousness. The patient's father and stepmother at bedside. The sister is at bedside. They are all in agreement that they are comfortable going home at this time. He is discharged in stable condition. (Matt Vanegas) Medical Decision Making: PHYSICIAN DOCUMENTATION: The patient was evaluated and managed by the Physician [facility] Sales Consultant. My co- signature indicates that I have reviewed this chart and I agree with the findings and plan of care as documented. I am the secondary supervising physician. (Moiz Morales) - Diagnostics EKG Interpretation: EKG: Complete interpretation has been separately recorded in the [facility] archive. Summary impression: Sinus rhythm, rate 85 (Moiz Morales) Imaging Results: Imaging Impressions Chest X-Ray 07/23/17 10:44 Impression: Mild peribronchial thickening which could be related to airways disease/bronchitis. Cervical Spine CT 07/23/17 10:45 Impression: 1. No acute fracture or soft tissue swelling. 2. If the patient has persistent pain or neurologic deficits, consider cervical spine MRI. Findings discussed with Emergency Department physician, Matt Vanegas PA-C on July 23, [address] 07/23/17 10:45 Impression: 1. Minimal right frontal scalp swelling. No acute fracture. 2. No acute intracranial hemorrhage or swelling. 3. No mass or etiology for possible seizure. Findings discussed with Emergency Department physician assistant press operator, Matt Vanegas PA-C on July 23, 2017 at 1145 hours. - Objective Vital Signs: Initial Vital Signs Temperature (C) 97.9 F 07/23/17 10:23 Heart Rate 95 07/23/17 10:23 Respiratory Rate 15 07/23/17 10:23 Blood Pressure 124/75 H 07/23/17 10:23 O2 Sat (%) 93 07/23/17 10:23 O2 Delivery Mode Room Air Allergies/Adverse Reactions: No Known Allergies Allergy (Verified 02/11/17 15:43) Home Medications: Medication Instructions Recorded NK [No Known Home Meds] 07/23/17 Laboratory Results: Laboratory Results 07/23/17 10:30 07/23/17 10:30 07/23/17 07/23/17 07/23/17 10:30 10:30 10:30 WBC 12.06 10^3/uL H 10^3/uL (3.80-9.50) RBC 5.93 10^6/uL 10^6/uL (4.40-6.38) Hgb 16.6 g/dL g/dL (13.7-17.5) Hct 47.9 % % (40.0-51.0) MCV 80.8 fL L fL (81.5-99.8) MCH 28.0 pg pg (27.9-34.1) MCHC 34.7 g/dL g/dL (32.4-36.7) RDW 13.5 % % (11.5-15.2) Plt Count 276 10^3/uL 10^3/uL (150-400) MPV 9.8 fL fL (8.7-11.7) Neut % (Auto) 36.8 % L % (39.3-74.2) Lymph % (Auto) 49.7 % H % (15.0-45.0) [place] % (Auto) 9.0 % % (4.5-13.0) Eos % (Auto) 2.6 % % (0.6-7.6) Baso % (Auto) 0.8 % % (0.3-1.7) Nucleat RBC Rel Count 0.0 % % (0.0-0.2) Absolute Neuts (auto) 4.45 10^3/uL 10^3/uL (1.70-6.50) Absolute Lymphs (auto) 5.99 10^3/uL H 10^3/uL (1.00-3.00) Absolute Monos (auto) 1.08 10^3/uL H 10^3/uL (0.30-0.80) Absolute Eos (auto) 0.31 10^3/uL 10^3/uL (0.03-0.40) Absolute Basos (auto) 0.10 10^3/uL 10^3/uL (0.02-0.10) Absolute Nucleated RBC 0.00 10^3/uL 10^3/uL (0-0.01) Immature Gran % 1.1 % % (0.0-1.1) Immature Gran # 0.13 10^3/uL H 10^3/uL (0.00-0.10) PT 13.7 SEC SEC (12.0-15.0) INR 1.06 (0.83-1.16) APTT 26.3 SEC SEC (23.0-38.0) Sodium 145 mEq/L H mEq/L (134-144) Potassium 3.8 mEq/L mEq/L (3.5-5.2) Chloride 103 mEq/L mEq/L (97-110) Carbon Dioxide 13 mEq/l L mEq/l (22-31) Anion Gap 29 mEq/L H mEq/L (8-16) BUN 11 mg/dL mg/dL (7-23) Creatinine 1.2 mg/dL mg/dL (0.7-1.3) Estimated GFR > 60 Glucose 145 mg/dL H mg/dL (70-100) Calcium 9.9 mg/dL mg/dL (8.5-10.4) Troponin I < 0.012 ng/mL ng/mL (0.000-0.034) Prolactin 69.8 ng/mL H ng/mL (3.7-17.9) Medications Given: Discontinued Medications Sodium Chloride (Ns) 1,000 mls @ 0 mls/hr IV EDNOW ONE; Wide Open PRN Reason: Protocol Stop: 07/23/17 10:45 Last Admin: 07/23/17 11:00 Dose: 1,000 mls Lorazepam (Ativan Injection) 1 mg IVP EDNOW ONE Stop: 07/23/17 10:53 Last Admin: 07/23/17 11:00 Dose: 1 mg Departure - Departure Disposition: Home, Routine, Self-Care Clinical Impression: Seizure-like activity, Loss of consciousness Condition: Good Instructions: Syncope (ED), New-Onset Seizure in Adults (ED) Additional Instructions: 1. No driving or operating machinery until seen and cleared by Neurology 2. Contact the on-call neurologist for outpatient follow-up. Information provided 3. Follow up with primary care physician or the on-call physician. Information provided 4. ED precautions for any return of seizure-like activity Referrals: Patient,NotPresent [Unknown] - As per Instructions Monique Wagoner MD [Medical Doctor] - As per Instructions Clive Bowden MD [Medical Doctor] - As per Instructions Stand Alone Forms: School Excuse, Work Excuse
[2017-07-23] MEDS ORDERED: LORazepam 2 MG/ML INJ IVP ONE (10:52)
[2017-07-23 10:54] LABS: PLATELET COUNT 276 10^3/uL (150-400)
[2017-07-23 11:03] LABS: INR 1.06 (0.83-1.16); PROTIME(PATIENT) 13.7 SEC (12.0-15.0)
[2017-07-23 11:46] VITALS: RESP 16; O2SAT 96
[2017-07-23 13:04] VITALS: BP 130/81; PULSE 81
== END 2017-07-23 13:08 | disposition home or self-care (01) ==
LOC: EDUNIT#
DX: R56.9 Unspecified convulsions (principal); E86.9 Volume depletion, unspecified; S06.9X9A Unspecified intracranial injury with loss of consciousness of unspecified duration, initial encounter; W01.198A Fall on same level from slipping, tripping and stumbling with subsequent striking against other object, initial encounter; Y99.8 Other external cause status; Y93.89 Activity, other specified
CPT/HCPCS: 96374; J2060

== ENCOUNTER → 2017-08-05 | Outpatient (CLI) | payer MEDICAID ==
--- NOTE | 2017-08-06 07:40 | CPEEG ---
[f rep st] ELECTROENCEPHALOGRAM EEG REPORT. DATE OF STUDY: INTRODUCTION: This is a multichannel EEG using the standard International 10- 20 system of disc electrode placement. A single EKG channel is monitored for the duration of the study. No pertinent medications are reported. This study is undertaken for the evaluation of a seizure. Duration of study is 30 minutes. DESCRIPTION OF RECORDING: In the maximal alert state, the patient achieved a posterior dominant rhythm of symmetric 12 Hz alpha that attenuated with eye opening. Provoking measures, including photic stimulation and hyperventilation were performed. Photic stimulation resulted in a driving response. Hyperventilation resulted in a mild and transient buildup response. Drowsiness was observed as marked by slow roving eye movements, attenuation of the background and anterior spreading of alpha. N1 sleep was observed as marked by vertex waves. N2 sleep was marked by K complexes and spindle activity. The EKG demonstrated normal sinus rhythm. INTERPRETATION: Normal awake through N2 sleep EEG. CLINICAL CORRELATION: No focal lateralizing epileptiform discharges. /[id number]/MODL MTDD
== END ==
LOC: FCPNEURO 10:42
PROVIDERS: ATTEND Psychiatry & Neurology Neurology
DX: R56.9 Unspecified convulsions (principal)

== ENCOUNTER 2017-09-08 13:54 | Inpatient (IN) | payer MEDICAID ==
--- NOTE | 2017-09-08 14:04 | EDPHY ---
H & P - Medical/Surgical History Hx Asthma: No Hx Chronic Respiratory Disease: No Hx Diabetes: No Hx Cardiac Disease: No Hx Renal Disease: No Hx Cirrhosis: No Hx Alcoholism: No Hx HIV/AIDS: No Hx Splenectomy or Spleen Trauma: No Other PMH: Denies - Social History Smoking Status: Never smoked Constitutional: Initial Vital Signs Temperature (C) 34.6 C L 09/08/17 14:47 Heart Rate 98 09/08/17 14:47 Respiratory Rate 13 09/08/17 14:47 Blood Pressure 125/64 H 09/08/17 14:47 O2 Sat (%) 93 09/08/17 14:47 O2 Delivery Mode Room Air Allergies/Adverse Reactions: No Known Allergies Allergy (Verified 02/11/17 15:43) Home Medications: Medication Instructions Recorded NK [No Known Home Meds] 07/23/17 Medical Decision Making - Diagnostics Imaging Results: Imaging Impressions Cervical Spine CT 09/08/17 14:02 Impression: 1. Acute nondisplaced left temporal skull base fracture. 2. No acute cervical spine fracture. 3. If the patient has persistent pain or neurologic deficits, consider cervical spine MRI. Findings discussed with Emergency Department physician, Kash Aceves MD, on 09/08/2017, 14:45. Head CT 09/08/17 14:02 Impression: 1. Small petechial hemorrhagic contusion anterior right temporal lobe. 2. No subdural hematoma or mass effect. 3. Acute nondisplaced left skull base fracture with associated fluid in the left mastoid air cells. Findings discussed with Emergency Department physician, Kash Aceves M.D. on 09/08/2017 at 1445 hours. Imaging: Discussed imaging studies w/ zanjero Radiologist, I viewed and interpreted images myself ED Course/Re-evaluation: CHIEF COMPLAINT: AMS, head injury, possible seizure HISTORY OF PRESENT ILLNESS: The patient is a 27 y/o male with possible recent seizure disorder diagnosis arriving via EMS in [facility] with altered mentation and head trauma after he was found down in the parking lot of his apartment complex about 30 minutes prior to arrival here. He was evaluated in the ED 1.5 months ago for a possible seizure after his girlfriend witnessed convulsions with subsequent disorientation. He was referred to neurology for follow up, but per girlfriend, who spoke with EMS via phone, there have been logistical difficulties getting a brain MRI. Today, his girlfriend says they woke up late and he took the dogs out for a walk around 13:00. He returned home and stepped back outside to talk to his grandparents by phone around 13:15. He was then found unresponsive in the parking lot of his apartment complex around 13:25. He is currently bleeding from his left ear and disoriented. He denies pain currently. He is able to tell me his name and says he went for a walk, but otherwise is unable to answer any questions. EMS reports he vomited en route. History limited by patient presentation. REVIEW OF SYSTEMS: Unobtainable due to patient presentation. PHYSICAL EXAM: HR, BP, O2 Sat, RR. Temp noted General Appearance: Alert, flattened affect, able to follow commands but disoriented, actively bleeding from left ear. Head: Left forehead abrasions Eyes: Pupils equal, round, reactive to light and accommodation, EOMI, no trauma , no injection. Ears: Left ear hemotympanum with active bleeding. Right TM normal. Nose: Atraumatic, no rhinorrhea, no septal hematoma Neck: The patient arrived in a cervical collar. Nontender, no trauma, trachea midline. Cardiovascular: Heart is regular rate and rhythm without murmur. Good capillary refill all extremities. Chest: Atraumatic, equal bilateral breath sounds. Low oxygen saturations and mild bradypnea. Chest is non-tender to palpation. Gastrointestinal: Soft, non-tender, non-distended. No rebound, guarding, or peritoneal signs. There is no evidence of external or internal trauma. Back: There is no thoracic or lumbar spine or paraspinal tenderness. Extremities: All extremities are non-tender to palpation without obvious deformity. There is full active range of motion of the joints. Neurological: Alert, disoriented, amnesic, able to follow commands. Moving all extremities, no focal deficit. Tremulous. Skin: No lacerations, lewis. Abrasions to left forehead and hands. PAST MEDICAL HISTORY: Possible seizure disorder; "serious" head injury as a child resulting in prolonged loss of consciousness; severe left arm abscess requiring surgery 02/11/17 of uncertain etiology PAST SURGICAL HISTORY: Left arm abscess emergent exploration with drainage and group A strep cultured Prior medical records reviewed including ED visit 07/23/17 for possible seizure and admission 02/11/17 for complicated abscess and surgical treatment. SOCIAL HISTORY: Lives in [place] with girlfriend. Sister, father, girlfriend at bedside. DIAGNOSTICS/PROCEDURES/CRITICAL CARE TIME: Head CT: right front temporal intraparenchymal hemorrhage, left basilar skull fracture with fluid in mastoid air cells. Neck CT: negative for acute process. The 12 lead EKG was interpreted by myself. Sinus rhythm, rate 60. See hard copy and/or "tracemaster" electronic copy for interpretation. Critical care time spent by me, Dr. Aceves, exclusively with this patient was 45 minutes, exclusive of PA time and exclusive of procedures. The organ system at risk was brain. Time spent in urgent assessment, activation of Limited Trauma for suspected basilar skull fracture, serial assessments of patient, discussion with patient and family, consideration of interventions, review of CT scans, and consultation with neurosurgery and trauma surgery. DIFFERENTIAL DIAGNOSIS: The differential diagnosis for the patient's trauma included but was not limited to intracranial injury, basilar skull fracture, intraparenchymal hemorrhage, spinal injury. The differential diagnosis for the patient's altered mental status included but was not limited to head injury, postictal from seizure, hypoglycemia, infectious process, electrolyte abnormality, head injury, neurologic process, anemia, cardiac process, and intoxicants. MEDICAL DECISION MAKIN: This is a 27 y/o male who is currently undergoing outpatient evaluation for possible seizure disorder that arrives with obvious left-sided head trauma after he was found down in the parking lot of his apartment complex this afternoon. I do not suspect intoxicants or alcohol withdrawal based on history from family and prior records. He is altered, but otherwise has a normal neurologic exam. In-house Limited Trauma Activation called due to AMS and active bleeding from left TM and high suspicion of basilar skull fracture. Patient was initially hypoxemic at 58% RA likely due to some hypoventilation. Patient placed on NRB with improvement in O2 saturation. 1411: Patient sent to CT. 1mg IV Ativan administered for seizure prophylaxis. 1442: CT reveals basilar skull fracture and intraparenchymal hemorrhage. Non- operative. Patient will require admission. 1445: Consulted with neurosurgery. They will consult during admission as needed. 1446: Reevaluated patient and discussed results. Sister and girlfriend are now at bedside. 1452: Consulted with Dr. Galindo, surgery. He will consult on patient as needed. 1500: Reassessed patient and discussed work up with him and family members. Neurosurgery and trauma surgery at bedside currently. Father states patient was prescribed Ativan yesterday for seizure prophylaxis and took his first dose today. Anion gap of 30 is consistent with seizure, though unknown if this lead to his fall and head trauma or was a result of head trauma. I suspect seizure occurred first due to prior history of witnessed presumed seizure in July. BGL normal. EtOH serum level normal. 1512: Spoke with Dr. Rojo, hospitalist. He accepts admission to the Step- Down unit. We will load with 1gm IV Keppra for seizure prophylaxis. Zofran and Fentanyl as needed for pain and nausea. Wound care by tech. Cervical spine cleared by CT. Patient continues to have normal neuro exam apart from altered mentation. C-collar removed by myself. - Data Points Laboratory Results: Laboratory Results 09/08/17 14:19 09/08/17 14:19 09/08/17 09/08/17 09/08/17 15:00 15:00 14:19 WBC RBC Hgb Hct MCV MCH MCHC RDW Plt Count MPV Neut % (Auto) Lymph % (Auto) [place] % (Auto) Eos % (Auto) Baso % (Auto) Nucleat RBC Rel Count Absolute Neuts (auto) Absolute Lymphs (auto) Absolute Monos (auto) Absolute Eos (auto) Absolute Basos (auto) Absolute Nucleated RBC Immature Gran % Immature Gran # PT 15.5 SEC H SEC (12.0-15.0) INR 1.21 H (0.83-1.16) APTT 27.5 SEC SEC (23.0-38.0) Sodium 145 mEq/L H mEq/L (134-144) Potassium 3.7 mEq/L mEq/L (3.5-5.2) Chloride 105 mEq/L mEq/L (97-110) Carbon Dioxide 11 mEq/l L mEq/l (22-31) Anion Gap 29 mEq/L H mEq/L (8-16) BUN 11 mg/dL mg/dL (7-23) Creatinine 1.2 mg/dL mg/dL (0.7-1.3) Estimated GFR > 60 Glucose 168 mg/dL H mg/dL (70-100) Calcium 9.8 mg/dL mg/dL (8.5-10.4) Ethyl Alcohol < 10 mg/dL mg/dL (0-10) Patient ABO/Rh Pending Antibody Screen Pending 09/08/17 14:19 WBC 9.51 10^3/uL H 10^3/uL (3.80-9.50) RBC 5.82 10^6/uL 10^6/uL (4.40-6.38) Hgb 16.5 g/dL g/dL (13.7-17.5) Hct 47.3 % % (40.0-51.0) MCV 81.3 fL L fL (81.5-99.8) MCH 28.4 pg pg (27.9-34.1) MCHC 34.9 g/dL g/dL (32.4-36.7) RDW 13.0 % % (11.5-15.2) Plt Count 289 10^3/uL 10^3/uL (150-400) MPV 9.8 fL fL (8.7-11.7) Neut % (Auto) 35.0 % L % (39.3-74.2) Lymph % (Auto) 54.0 % H % (15.0-45.0) [place] % (Auto) 7.5 % % (4.5-13.0) Eos % (Auto) 1.5 % % (0.6-7.6) Baso % (Auto) 1.1 % % (0.3-1.7) Nucleat RBC Rel Count 0.0 % % (0.0-0.2) Absolute Neuts (auto) 3.33 10^3/uL 10^3/uL (1.70-6.50) Absolute Lymphs (auto) 5.14 10^3/uL H 10^3/uL (1.00-3.00) Absolute Monos (auto) 0.71 10^3/uL 10^3/uL (0.30-0.80) Absolute Eos (auto) 0.14 10^3/uL 10^3/uL (0.03-0.40) Absolute Basos (auto) 0.10 10^3/uL 10^3/uL (0.02-0.10) Absolute Nucleated RBC 0.00 10^3/uL 10^3/uL (0-0.01) Immature Gran % 0.9 % % (0.0-1.1) Immature Gran # 0.09 10^3/uL 10^3/uL (0.00-0.10) PT INR APTT Sodium Potassium Chloride Carbon Dioxide Anion Gap BUN Creatinine Estimated GFR Glucose Calcium Ethyl Alcohol Patient ABO/Rh Antibody Screen Medications Given: Discontinued Medications Fentanyl (Sublimaze) 50 mcg IVP EDNOW ONE Stop: 09/08/17 15:23 Last Admin: 09/08/17 15:23 Dose: 50 mcg Levetiracetam 1,000 mg/ Sodium (Chloride) 110 mls @ 440 mls/hr IV EDNOW ONE Stop: 09/08/17 15:29 Last Admin: 09/08/17 15:48 Dose: 110 mls Lorazepam (Ativan Injection) 1 mg IVP EDNOW ONE Stop: 09/08/17 14:48 Last Admin: 09/08/17 14:15 Dose: 1 mg Ondansetron HCl (Zofran) 4 mg IVP EDNOW ONE Stop: 09/08/17 15:23 Last Admin: 09/08/17 15:24 Dose: 4 mg Departure - Departure Disposition: [facility] Inpatient Acute Clinical Impression: Petechial hemorrhage, Seizure disorder Basilar skull fracture Qualifiers: Encounter type: initial encounter Fracture type: closed Laterality: left Qualified Code(s): S02.102A - Fracture of base of skull, left side, initial encounter for closed fracture Condition: Fair Referrals: Patient,NotPresent [Unknown] - As per Instructions Report Scribed for: Kash Aceves Report Scribed by: Becca Myers Date of Report: 09/08/17 Time of Report: 14:07
[2017-09-08] MEDS ORDERED: LORazepam 2 MG/ML INJ ONE (14:11)
[2017-09-08 14:23] LABS: % IMMATURE GRANULYOCYTES 0.9 % (0.0-1.1); ABSOLUTE IMMATURE GRANULOCYTES 0.09 10^3/uL (0.00-0.10); ADD DIFF? NO; ADD MORPH? NO; ADD SCAN? NO; ATYPICAL LYMPHOCYTE FLAG 0 (0-99); FRAGMENT RBC FLAG 0 (0-99); HEMATOCRIT 47.3 % (40.0-51.0); HEMOGLOBIN 16.5 g/dL (13.7-17.5); LEFT SHIFT FLG 0 (0-99); LIPEMIA HEMOLYSIS FLAG 90 (0-99); MEAN CELL HEMOGLOBIN 28.4 pg (27.9-34.1); MEAN CELL HEMOGLOBIN CONCENTR. 34.9 g/dL (32.4-36.7); MEAN CELL VOLUME 81.3 fL (81.5-99.8); MEAN PLATELET VOLUME 9.8 fL (8.7-11.7); PLATELET CLUMPS FLAG 0 (0-99); PLATELET COUNT 289 10^3/uL (150-400); RED BLOOD CELL COUNT 5.82 10^6/uL (4.40-6.38)
[2017-09-08 14:38] LABS: ANION GAP 29 mEq/L (8-16); CALCIUM 9.8 mg/dL (8.5-10.4); CARBON DIOXIDE 11 mEq/l (22-31); CHLORIDE 105 mEq/L (97-110); CREATININE 1.2 mg/dL (0.7-1.3); ETHANOL SERUM < 10 mg/dL (0-10); GLOMERULAR FILTRATION RATE > 60; GLUCOSE 168 mg/dL (70-100); POTASSIUM 3.7 mEq/L (3.5-5.2); SODIUM 145 mEq/L (134-144)
[2017-09-08] MEDS ORDERED: LORazepam 2 MG/ML INJ IVP ONE (14:47)
--- NOTE | 2017-09-08 14:47 | ASMTCMCOM ---
CM Note CM Note Notes: Patient presents to the ED via EMS after being found down outside of his apartment building. Patient may have had a seizure and hit his head. Patient awake, alert but appearing postictal, able to follow basic commands and give permission to call his father Jacek ([phone]) and sister Lucina ([phone]). Lucina arrived to the ED shortly after being called and this CM spoke with Jacek, who is on his way to the ED. EMS spoke with patient's girlfriend, Meenakshi ([phone]) over the phone and was able to learn that patient had a fall and first time seizure about a month ago. Patient followed up with neurologist Dr Diaz and received an EEG. Exact DC needs unknown at this time, CM to follow. Date Signed: 09/08/2017 02:47 PM Electronically Signed By:Mary Grace Rachel RN
[2017-09-08] MEDS ORDERED: levETIRAcetam 1,000 MG in NS 100 ML IV ONE (15:15)
[2017-09-08] MEDS ORDERED: fentaNYL 100 MCG/2 ML INJ ONE (15:18)
[2017-09-08] MEDS ORDERED: ONDANSETRON 4 MG/2 ML VIAL ONE (15:18)
[2017-09-08 15:20] LABS: INR 1.21 (0.83-1.16); PROTIME(PATIENT) 15.5 SEC (12.0-15.0)
[2017-09-08 15:21] LABS: APTT 27.5 SEC (23.0-38.0)
[2017-09-08] MEDS ORDERED: ONDANSETRON 4 MG/2 ML VIAL IVP ONE (15:22)
[2017-09-08] MEDS ORDERED: fentaNYL 100 MCG/2 ML INJ IVP ONE (15:22)
--- NOTE | 2017-09-08 15:34 | CPEKG ---
Heart Rate: 60 RR Interval: 1000 P-R Interval: 160 QRSD Interval: 100 QT Interval: 444 QTC Interval: 444 P Hershey: 64 QRS Hershey: 77 T Wave Hershey: 57 EKG Severity - NORMAL ECG - EKG Impression: SINUS RHYTHM Electronically Signed By: Kash Aceves 08-Sep-2017 22:46:41
[2017-09-08] MEDS ORDERED: ONDANSETRON 4 MG/2 ML VIAL IVP PRN (15:52)
[2017-09-08] MEDS ORDERED: NS 1,000 ML IV SCH (16:00)
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
[2017-09-08] MEDS: HYDROmorphONE/DILAUDID 1 MG/ML INJ IVP PRN ×2 (17:04→22:52)
--- NOTE | 2017-09-08 17:23 | PDCONSULT ---
Newspaper Photojournalist Note: Thierno Carr is a 27-year-old gentleman presents to the hospital after unwitnessed seizure and fall with trauma to the posterior aspect of his head on the right. He was brought in by EMS for evaluation and management. The patient had normal hemodynamics and was breathing spontaneously on arrival. A period of 20 min between the time he was last seen by his girlfriend in the time EMS brought him into the hospital. The patient had a previous episode in July of 2017 and is car being worked up for seizure disorder. He had a previous head injury as a child with several hours of being unconscious. No other issue since that time. As he has had a seizure prior to fall he will be admitted by Medicine service with this Trauma surgery consultation. Patient's all complaint is that of posterior head and left ear pain Past medical history: Seizure disorder Surgical history none Family history: No history of seizure disorder syncopal events or cardiac disease Social history: No recent alcohol drug or tobacco use Allergies: No known drug allergies Medications at home: Review of systems significant recent diagnosis of seizure disorder Objective: Alert to person place and time Sclerae are anicteric Oropharynx moist Dentition intact Left hemotympanum Point tenderness with controlled hemorrhage posterior left occiput Extraocular motions intact. Nonfocal neurologic exam full muscle strength range of motion all 4 extremities GCS 15 Regular rate and rhythm Clear to auscultation bilaterally 2+ over 2+ femoral carotid distal pulses hand abrasion 09/08/17 14:19 09/08/17 14:19 Patient ABO/Rh O POSITIVE 09/08/17 15:00 Imaging Impressions Cervical Spine CT 09/08/17 14:02 Impression: 1. Acute nondisplaced left temporal skull base fracture. 2. No acute cervical spine fracture. 3. If the patient has persistent pain or neurologic deficits, consider cervical spine MRI. Findings discussed with Emergency Department physician, Kash Aceves MD, on 09/08/2017, 14:45. Head CT 09/08/17 14:02 Impression: 1. Small petechial hemorrhagic contusion anterior right temporal lobe. 2. No subdural hematoma or mass effect. 3. Acute nondisplaced left skull base fracture with associated fluid in the left mastoid air cells. Findings discussed with Emergency Department physician, Kash Aceves M.D. on 09/08/2017 at 1445 hours. Impressions/plan: Patient was seen in the emergency room with Dr. Aceves and Neurosurgery Services. Acute seizure followed by closed-head injury with base of the skull fracture left os but and contrecoup injury with subarachnoid hemorrhage on the right. No subdural no shift Admit to Medicine Bacitracin on abrasion No further imaging of the head per Neurosurgery Tertiary exam tomorrow
[2017-09-08] MEDS ORDERED: LR 1,000 ML IV SCH (17:30)
[2017-09-08] MEDS ORDERED: METOCLOPRAMIDE 10 MG/2 ML VIAL IVP PRN (18:30)
[2017-09-08] MEDS: PROMETHAZINE HCL 25 MG/ML INJ IVP PRN (20:38)
[2017-09-08] MEDS: levETIRAcetam 500 MG in NS 100 ML IV SCH (21:00)
[2017-09-09] MEDS: HYDROmorphONE/DILAUDID 1 MG/ML INJ IVP PRN ×3 (01:32→06:35)
--- NOTE | 2017-09-09 03:38 | GCON ---
[f rep st] CONSULTATION DATE OF CONSULTATION: 09/08/2017 CHIEF COMPLAINT: 1. Fall with seizure. 2. Basilar skull fracture with small intraparenchymal hemorrhage contralaterally. 3. Recent history of fall with workup for seizure disorder by Dr. Diaz in progress. 4. The patient was seen in the emergency department in ER room 2 by the neurosurgical service on at 1500. HISTORY OF PRESENT ILLNESS: Mr. Carr is a 27-year-old male who will be admitted to either trauma ser vices or Internal Medicine for a syncopal episode and seizure. The patient does have a history of se izure disorder and is getting worked up by Dr. Diaz. He last had an incident approximately 1 manav h ago when he fell and had a seizure at that time. Today he was at home and of his normal state of h ealth. He was out walking the dogs, brought the dogs back, and then went out to make a phone call. The next thing the family knew was that they were trying to contact him via his phone and spoke with a supervisor spinning. The patient came in today to the emergency department in a cervical collar with altered mental status and head trauma. A CT scan of the head was obtained as well as a CT scan of cervical spine, which showed a basilar skull fracture and contralateral intraparenchymal hemorrhage. The adolfo ent's history is that he was seen in the emergency department 1-1/2 months ago for possible seizure a fter his girlfriend witnessed convulsions and subsequent disorientation. As mentioned above, he is i n the process of getting this worked up with Dr. Diaz from Neurology. The patient is here with hi s girlfriend as well as his sister and father who are at the bedside. The patient is awake and alert at this time. He has a GCS of 15. The patient denies any neck pain, chest pain, shortness of breat h, abdominal complaints, or upper or lower extremity complaints, such as numbness, tingling, weakness , or pain. PAST MEDICAL HISTORY: 1. Workup for seizure disorder with Dr. Diaz. 2. Closed head injury at 10 years of age with intracranial bleed. MEDICATIONS: None listed. No blood thinning medicines. ALLERGIES: None. PAST SURGICAL HISTORY: Left arm infection that was seen by Dr. Hernández and was strep in nature req uiring surgery. SOCIAL HISTORY: The patient lives in [place]. He denies any alcohol use, smoking, or drug use. FAMILY HISTORY: There is no history of seizures in the family. Otherwise noncontributory. IMMUNIZATIONS: Reported up-to-date. TRAVEL: No recent travel. REVIEW OF SYSTEMS: A complete 10-point review of systems was done and noted, but otherwise negative except for noted in the HPI. PHYSICAL EXAMINATION: GENERAL: This is an awake, alert, and oriented male in no acute distress. MAJO SIGNS: Blood pressure is 125/64 with a MAP of 84, heart rate 13, respirations 93% on room air, a nd temperature is 34.6. HEENT: Head is normocephalic. There is some blood behind the left ear drum , but none behind the right ear. He had some blood in the external auditory meatus. He does have te nderness in the mastoid area on the left side, but none on the right. Pupils are equal, round, and r eactive to light. EOMI. He has full visual rodriguez by confrontation. Ears are patent. Nose is charles nt. NECK: Soft and supple with no midline tenderness. The patient is in a cervical collar, which w ill be cleared by emergency room physician shortly. RESPIRATORY: Deferred. CARDIAC: Deferred. AB DOMEN: Soft and nontender with no peritoneal signs. : Deferred. RECTAL: Deferred. NEUROLOGIC: The patient is awake, alert, and oriented. Memory is intact to past, but not to current from most recent fall. The patient is exhibiting some postictal symptoms, but is awake, alert, and able to pro vide me his name and location as well as the date. The patient has 5/5 strength in all muscle groups of the bilateral upper and lower extremities to include deltoids, biceps, triceps, brachioradialis, wrist flexion, extensors, playground aide, intrinsic fingers, iliopsoas, quadriceps, hamstring, plantar flexion, dorsiflexion, and EHL testing. Sensation is grossly intact to light touch throughout all dermatome distributions in the upper and lower extremities. Negative straight leg raise. Negative RACIEL test. Reflexes of the biceps, triceps, brachioradialis, knee jerk, and ankle jerk are 2+/4. Toes are ernst ngoing bilaterally. Rebolledo's is negative. Babinski negative. No evidence of clonus. LABORATORY TESTS: 09/08/2017: White count is 9.51, hemoglobin 16.5, hematocrit 47.3, and platelet c ount is 289. Coags show a PT of 15.5, INR of 1.21, and PTT of 27.5. Chemistry reveals sodium of 145 , potassium 3.7, chloride 105, CO2 of 11, BUN 11, creatinine 1.2, and glucose of 168. Alcohol was le ss than 10. IMAGING: CT scan of the cervical spine obtained on 09/08/2017 at 1402 reveals acute nondisplaced lef t temporal skull base fracture. No acute cervical spine fracture. CT scan of the head obtained on 09/08/2017 shows a small petechial hemorrhage in the anterior right t emporal lobe. No subdural hematoma or mass effect and noted acute nondisplaced left skull base fract ure with associated fluid in the left mastoid air cells. IMPRESSION: 1. Seizure history. 2. Fall. 3. Small petechial hemorrhage in the anterior right temporal lobe. 4. Acute nondisplaced left skull base fracture with associated fluid and left mastoid air cells. PLAN AND DISCUSSION: Thierno is a 27-year-old male who is currently being worked up by Dr. Joe han or seizure disorder. He had issues with this approximately a month to a month and a half ago, around 07/23/2017. He has a pending MRI of the brain with Dr. Diaz. He had an EEG done, but they were unable to give me the exact results of this. It is unclear if the patient had a syncopal episode the n seizure or a seizure as the cause of his fall. He has a fracture of the skull base on the left tisha e as well as a small right-sided temporal lobe anterior hemorrhage. Neither 1 of these are surgical at this time. We will continue to monitor him and he will be admitted to the step-down unit with jermaine ro checks. All questions and concerns were answered and they understand and agree. Please call Neur osurgery with any change in neuro status. /[id number]/MODL
[2017-09-09] MEDS: PROMETHAZINE HCL 25 MG/ML INJ IVP PRN ×3 (04:20→12:45)
--- NOTE | 2017-09-09 06:45 | NEUSURGPN ---
Assessment/Plan: Assessment: 27 yo male that had seizure and fall with CHI-noted left skull base fracture with contralateral ICB on right Plan: -s/p fall: Pt with small ICB on right and left sided skull base fracture as well -neuro checks q 2 hrs -pt seen by trauma as well on admission -pt admitted to IM -pending repeat CT head this am -PT/OT ordered -ST ordered -continue to watch blood from left ear-no active bleeding at this time-no clear liquid -warning signs given -call with any questions or concerns Subjective: Awake and alert. NAD. Eating/drinking and voiding. No f/c/n/v/d. No cp/sob/ abd or gu complaints. Objective: AAO x 3, PERRLA/EOMI no droop CN 2-12 grossly intact 5/5 BUE/BLE = Neuro Check Frequency: per ordered Urinary Catheter in Place: No - Physician Discussed Patient with : Chucky Patient Seen by : Chucky Neurosurgery Physical Exam - Vitals, I&O, Labs I and O 09/08/17 09/09/17 09/10/17 05:59 05:59 05:59 Intake Total 1100 Output Total 2375 Balance -1275 Weight 68.039 kg Intake: IV Infused (ml) 1100 Output: Urine (ml) 2000 Catheter 750 Urinal 1250 Emesis (ml) 375 Other: Output Comment Catheter STRAIGHT CATHED Number of Emesis 2 Occurrences Vital Signs Temp Pulse Resp BP Pulse Ox 37.1 C 57 L 15 106/51 L 99 09/09/17 04:00 09/09/17 04:00 09/09/17 04:00 09/09/17 04:00 09/09/17 04:00 ICD10 Worksheet Patient Problems: Problems Problem Status Onset Basilar skull fracture Acute Petechial hemorrhage Acute Seizure disorder Acute Abscess of left upper extremity Acute
[2017-09-09 07:13] LABS: % IMMATURE GRANULYOCYTES 0.4 % (0.0-1.1); ABSOLUTE IMMATURE GRANULOCYTES 0.06 10^3/uL (0.00-0.10); ADD DIFF? NO; ADD MORPH? NO; ADD SCAN? NO; ATYPICAL LYMPHOCYTE FLAG 0 (0-99); FRAGMENT RBC FLAG 0 (0-99); HEMATOCRIT 40.8 % (40.0-51.0); HEMOGLOBIN 14.7 g/dL (13.7-17.5); LEFT SHIFT FLG 0 (0-99); LIPEMIA HEMOLYSIS FLAG 90 (0-99); MEAN CELL HEMOGLOBIN 28.4 pg (27.9-34.1); MEAN CELL VOLUME 78.8 fL (81.5-99.8); MEAN PLATELET VOLUME 9.6 fL (8.7-11.7); PLATELET CLUMPS FLAG 0 (0-99); PLATELET COUNT 218 10^3/uL (150-400); RED BLOOD CELL COUNT 5.18 10^6/uL (4.40-6.38); RED CELL DISTRIBUTION WIDTH 12.9 % (11.5-15.2)
[2017-09-09 08:12] LABS: ALANINE AMINOTRANSFERASE 27 IU/L (21-72); ALBUMIN 4.1 g/dL (3.5-5.0); ALKALINE PHOSPHATASE 63 IU/L (38-126); ANION GAP 15 mEq/L (8-16); ASPARTATE AMINOTRANSFERASE 24 IU/L (17-59); BILIRUBIN,TOTAL 0.9 mg/dL (0.1-1.4); CALCIUM 9.8 mg/dL (8.5-10.4); CARBON DIOXIDE 22 mEq/l (22-31); CHLORIDE 107 mEq/L (97-110); CREATININE 0.9 mg/dL (0.7-1.3); GLOMERULAR FILTRATION RATE > 60; GLUCOSE 105 mg/dL (70-100); POTASSIUM 3.7 mEq/L (3.5-5.2); SODIUM 144 mEq/L (134-144); TOTAL PROTEIN 6.6 g/dL (6.3-8.2)
--- NOTE | 2017-09-09 08:37 | TRAUMAPN ---
Assessment/Plan: 27yo M s/p unwitnessed seizure c fall with L basilar skull fx, SAH vs petechial hemorrhage, hemotympanum TERTIARY SURVEY Neuro: Repeat head CT pending this morning, patient seems a little out of it as he is perseverating and rambling, unclear what his baseline is. Collar successfully cleared per Neurosurgery yesterday. Exam remains nonfocal, does continue to have blood leaking from his left ear albeit less so than previous. Pulm: Stable on room air, no crepitus, nontender CV: Hemodynamically stable Abdomen: Soft nondistended nontender Renal: Per patient, has issues with voiding Heme: Stable Id: Afebrile no antibiotics Integument: Forehead abrasion stable, appropriately tender. Multiple abrasions on his hands and upper extremities which appear stable in non bleeding. Ortho: No long bone fractures, nothing identified on survey this morning Dispo: Follow-up head CT this morning, plan will be per Neurosurgery. Discussed with patient that he will likely need to start taking medicine for his seizure disorder which she has been hesitant to secondary to cost. Trauma surgery to sign off Objective: Vital Signs Temp Pulse Resp BP Pulse Ox 36.9 C 71 15 121/63 H 94 09/09/17 08:00 09/09/17 08:00 09/09/17 08:00 09/09/17 08:00 09/09/17 08:00 Laboratory Results 09/09/17 06:50 09/09/17 06:50 09/08/17 09/09/17 09/10/17 05:59 05:59 05:59 Intake Total 2020 Output Total 2400 Balance -380 PT 15.5 SEC (12.0-15.0) H 09/08/17 15:00 INR 1.21 (0.83-1.16) H 09/08/17 15:00
[2017-09-09] MEDS: levETIRAcetam 500 MG in NS 100 ML IV SCH (08:42)
--- NOTE | 2017-09-09 09:25 | ASMTCMCOM ---
CM Note CM Note Notes: 27 year old male found down after sz and head injury. Admitted for ICB, skull fx, sz. Has a hx of CHI as a child. Therapies have been ordered for possible discharge needs. CM to follow. Date Signed: 09/09/2017 09:25 AM Electronically Signed By:Abeba Segura LCSW
[2017-09-09] MEDS ORDERED: GADOBUTROL 10 ML VIAL IVP ONE (11:07)
[2017-09-09] MEDS: oxyCODONE IR 5 MG TAB PO PRN ×2 (15:48→18:41)
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
--- NOTE | 2017-09-09 18:21 | HOSPPROG ---
Hospitalist Progress Note Assessment/Plan: * Head trauma - fall due to seizure - ICH/SDH with small amt edema -CT reviewed with neurosurgery - slight worsening - follow * Seizure disorder -Keppra started -no driving 90 days * TBI as a child - source of seizure disorder * Left basilar skull fracture -per trauma Subjective: No change neuro exam, taking pO Objective: Vital Signs Temp Pulse Resp BP Pulse Ox 36.9 C 87 19 126/70 H 96 09/09/17 16:00 09/09/17 16:00 09/09/17 16:00 09/09/17 16:00 09/09/17 16:00 PT 15.5 SEC (12.0-15.0) H 09/08/17 15:00 INR 1.21 (0.83-1.16) H 09/08/17 15:[address] - worsening bleed with small edema Head CT reviewed with Titi Ashraf and Dr Locke - follow closely Laboratory Tests 09/09/17 06:50 WBC 15.63 H Hct 40.8 MCV 78.8 L Plt Count 218 D - Physical Exam Constitutional: no apparent distress, appears nourished, not in pain Cardiovascular: regular rate and rhythym, no murmur, rub, or gallop Respiratory: no respiratory distress, no rales or rhonchi, clear to auscultation Gastrointestinal: normoactive bowel sounds, soft, non-tender abdomen, no palpable masses Skin: no rashes or abrasions, no fluctuance, no induration Neurologic: AAOx3, sensation intact bilaterally Psychiatric: interacting appropriately, not anxious, not encephalopathic, thought process linear ICD10 Worksheet Patient Problems: Problems Problem Status Onset Basilar skull fracture Acute Petechial hemorrhage Acute Seizure disorder Acute Abscess of left upper extremity Acute
[2017-09-09] MEDS: ACETAMINOPHEN 325 MG TAB PO PRN (21:04)
[2017-09-09] MEDS: levETIRAcetam 500 MG TAB PO SCH (21:04)
[2017-09-10] MEDS: oxyCODONE IR 5 MG TAB PO PRN ×6 (00:07→22:23)
[2017-09-10] MEDS: ACETAMINOPHEN 325 MG TAB PO PRN (05:11)
[2017-09-10 05:14] LABS: % IMMATURE GRANULYOCYTES 0.3 % (0.0-1.1); ABSOLUTE IMMATURE GRANULOCYTES 0.03 10^3/uL (0.00-0.10); ADD DIFF? NO; ADD MORPH? NO; ADD SCAN? NO; ATYPICAL LYMPHOCYTE FLAG 0 (0-99); FRAGMENT RBC FLAG 0 (0-99); HEMATOCRIT 37.9 % (40.0-51.0); HEMOGLOBIN 13.7 g/dL (13.7-17.5); LEFT SHIFT FLG 0 (0-99); LIPEMIA HEMOLYSIS FLAG 90 (0-99); MEAN CELL HEMOGLOBIN 28.7 pg (27.9-34.1); MEAN CELL HEMOGLOBIN CONCENTR. 36.1 g/dL (32.4-36.7); MEAN CELL VOLUME 79.5 fL (81.5-99.8); MEAN PLATELET VOLUME 9.4 fL (8.7-11.7); PLATELET CLUMPS FLAG 0 (0-99); PLATELET COUNT 198 10^3/uL (150-400); RED BLOOD CELL COUNT 4.77 10^6/uL (4.40-6.38); RED CELL DISTRIBUTION WIDTH 12.6 % (11.5-15.2)
--- NOTE | 2017-09-10 08:47 | PDINTPN ---
Ict Support Engineer Progress Note Assessment/Plan: Assessment/plan: * Status post fall * Seizures-none further -continue Keppra * Skull fracture * Mental status-good * Pain-controlled * VTE prophylaxis * PT/OT * Ambulation * Disposition-will transfer to floor Subjective: Resting comfortably. Pain tolerable. Not sleeping well. Objective: Vital Signs Temp Pulse Resp BP Pulse Ox 36.3 C 57 L 15 104/50 L 95 09/10/17 04:00 09/10/17 04:00 09/10/17 04:00 09/10/17 04:00 09/10/17 04:00 Laboratory Results 09/10/17 05:05 09/09/17 09/10/17 09/11/17 05:59 05:59 05:59 Intake Total 1998 Output Total 0 Balance 1998 PT 15.5 SEC (12.0-15.0) H 09/08/17 15:00 INR 1.21 (0.83-1.16) H 09/08/17 15:00 - Time Spent With Patient Time Spent With Patient: 25 min spent with patient, more than half of time spent in counseling and coordination of care Physical Exam - Physical Exam General Appearance: alert, no apparent distress EENT: PERRL/EOMI, normal ENT inspection Neck: non-tender, full range of motion, supple, normal inspection Respiratory: chest non-tender, lungs clear, normal breath sounds Cardiac/Chest: normal peripheral pulses, regular rate, rhythm Peripheral Pulses: 2+: carotid (R), carotid (L), femoral (R), femoral (L), dorsalis-pedis (R), dorsalis-pedis (L) Abdomen: normal bowel sounds, non-tender, soft Male Genitalia: deferred Rectal: deferred Skin: normal color, warm/dry Extremities: normal range of motion, non-tender, normal inspection, normal capillary refill Neuro/Psych: no motor/sensory deficits, alert, normal mood/affect, oriented x 3 ICD10 Worksheet Patient Problems: Problems Problem Status Onset Basilar skull fracture Acute Petechial hemorrhage Acute Seizure disorder Acute Abscess of left upper extremity Acute
--- NOTE | 2017-09-10 09:25 | NEUSURGPN ---
Assessment/Plan: Assessment: 27 yo male that had seizure and fall with CHI-noted left skull base fracture with contralateral ICB on right Plan: -s/p fall: Pt with small ICB on right and left sided skull base fracture as well -Repeat head CT yesterday showed increase in left SDH without shift, patient remains neurologically intact. Had long discussion with patient and mother at bedside about treatment options. Will continue to monitor. No surgery indicated at this point unless decline in neuro status. -Decreased hearing in left ear, will have ENT eval/treat -Ok to transfer to floor -Continue Keppra -PT/OT/ST eval and treat -call with any questions or concerns Subjective: Patient "feeling better than yesterday, but not usual self" Objective: AAO x 3, PERRLA/EOMI no droop CN 2-12 grossly intact aside from decreased hearing in left ear 5/5 BUE/BLE Neuro Check Frequency: per routine Urinary Catheter in Place: No - Physician Discussed Patient with : [facility] Physical Exam - Vitals, I&O, Labs I and O 09/09/17 09/10/17 09/11/17 05:59 05:59 05:59 Intake Total 1998 Output Total 0 Balance 1998 Intake: Oral (ml) 1000 IV Intake (ml) 999 Output: Emesis (ml) 0 Other: Number of Voids Urinal 3 Vital Signs Temp Pulse Resp BP Pulse Ox 36.3 C 57 L 15 104/50 L 95 09/10/17 04:00 09/10/17 04:00 09/10/17 04:00 09/10/17 04:00 09/10/17 04:00 Laboratory Results 09/10/17 05:05 ICD10 Worksheet Patient Problems: Problems Problem Status Onset Basilar skull fracture Acute Petechial hemorrhage Acute Seizure disorder Acute Abscess of left upper extremity Acute
[2017-09-10] MEDS: levETIRAcetam 500 MG TAB PO SCH ×2 (09:31→22:21)
--- NOTE | 2017-09-10 10:00 | PDMN ---
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
[2017-09-10] MEDS: ONDANSETRON DISINTEGRATING 4 MG TAB PO PRN (10:30)
--- NOTE | 2017-09-10 13:11 | ASMTCMCOM ---
CM Note CM Note Notes: Spoke with patient, his sister, Lucina and his mother Kelly. Patient was not feeling well and stated he did not wish to participate. Mother and sister than gave some hx and had questions. Patient does not want to do any inpatient rehab but may be willing to do an outpatient program if he needs it at d/c. 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 Patient is very stressed by his medical bills and does not want to get anymore. Patient was qualified for Medicaid the last time he was in the hospital so most expenses should be covered. Mother Kelly has to return to [place] tomorrow. She was given my card so she can call with her questions. Patient and family are waiting to talk to Dr. Bowden today. CM will follow. Date Signed: 09/10/2017 01:11 PM Electronically Signed By:Juanita Wynne LCSW
--- NOTE | 2017-09-10 18:51 | HOSPPROG ---
Hospitalist Progress Note Assessment/Plan: Assessment: 27 yo M p/w acute intracranial hemorrhage in setting of acute closed head injury and seizure Plan: # Head trauma - acute, closed head injury/TBI, 2/2 fall due to seizure # Acute Intracranial Hemorrhage w/ SDH with small amt edema, stabilized on MRI - appreciate ongoing NSGY consult, no intervention - ongoing headache treated w/ tylenol + oxy IR + zofran/phenergan - counseled patient and family that we should safely increase activity and dietary intake today, as tolerated, ensure patient safe to ambulate # Seizure disorder - acute episode suspected as precipitant to presentation, in setting of chronic disorder - on keppra, no further seizure, remains lethargic - no driving 90 days - appreciate ongoing neuro consult # Metabolic acidosis - Acute, likely 2/2 seizure, w/ gap 29 - s/p IVF, currently poor intake, cont # Left basilar skull fracture - appreciate trauma eval, likely contributing to headache Diet. Regular PPx. Low risk, SCDs Code. Full Dispo. ADD 09/11, if pain managed and activity advanced Subjective: ongoing headache, fatigued 2/2 neuro checks Objective: Vital Signs Temp Pulse Resp BP Pulse Ox 36.8 C 66 22 H 107/64 95 09/10/17 16:00 09/10/17 16:00 09/10/17 16:00 09/10/17 16:00 09/10/17 16:00 Laboratory Results 09/10/17 05:05 09/09/17 09/10/17 09/11/17 05:59 05:59 05:59 Intake Total 1998 Output Total 0 Balance 1998 PT 15.5 SEC (12.0-15.0) H 09/08/17 15:00 INR 1.21 (0.83-1.16) H 09/08/17 15:00 - Time Spent With Patient Time Spent with Patient: greater than 35 minutes Time Spent with Patient: Greater than 35 minutes spent on this patients care, greater than 50% of time spent counseling, educating, and coordinating care regarding the above mentioned plan. - Physical Exam Constitutional: no apparent distress, uncomfortable, No not in pain (mild) Cardiovascular: regular rate and rhythym, no murmur, rub, or gallop Respiratory: no respiratory distress, no rales or rhonchi, clear to auscultation Gastrointestinal: normoactive bowel sounds, soft, non-tender abdomen, no palpable masses Skin: other (ecchymoses L temporal) Neurologic: AAOx3, sensation intact bilaterally, CN II-XII Intact, No weakness Psychiatric: not anxious, flat affect, other (lethargic but arousable), No agitated ICD10 Worksheet Patient Problems: Problems Problem Status Onset Abscess of left upper extremity Acute Basilar skull fracture Acute Petechial hemorrhage Acute Seizure disorder Acute
[2017-09-10] MEDS ORDERED: PROMETHAZINE HCL 25 MG TAB PO PRN (18:52)
[2017-09-11] MEDS: oxyCODONE IR 5 MG TAB PO PRN ×2 (00:36→05:58)
[2017-09-11 08:10] VITALS: BP 96/45; PULSE 49; RESP 16; TEMP 97.5; O2SAT 94
--- NOTE | 2017-09-11 08:26 | NEUSURGPN ---
Assessment/Plan: Assessment: 27 yo male that had seizure and fall with CHI-noted left skull base fracture with contralateral ICB on right Plan: -s/p fall: Pt with small ICB on right and left sided skull base fracture as well -Repeat head CT Friday showed increase in left SDH without shift, patient remains neurologically intact. Had long discussion with patient and mother at bedside about treatment options yesterday. No surgery indicated at this point unless decline in neuro status. -Patient remains neuro intact -Ok to dc home per neurosurgery, will need to follow up with Dr Locke in 4 weeks, no repeat imaging needed. Continue Keppra -Discussed red flag symptoms to watch for with patient and mother -Decreased hearing in left ear, will have ENT eval/treat -PT/OT/ST eval and treat -call with any questions or concerns -Discussed patient with Dr Locke Subjective: patient sleeping, awakes to voice, denies headache Objective: AAO x 3, PERRLA/EOMI no droop CN 2-12 grossly intact aside from decreased hearing in left ear 5/5 BUE/BLE Neuro Check Frequency: per routine Urinary Catheter in Place: No - Physician Discussed Patient with Dr.: [facility] Physical Exam - Vitals, I&O, Labs I and O 09/10/17 09/11/17 09/12/17 05:59 05:59 05:59 Intake Total 1998 500 Output Total 0 2 Balance 1998 498 Intake: Oral (ml) 1000 500 IV Intake (ml) 999 Output: Urine (ml) 2 Urinal 2 Emesis (ml) 0 Other: Intake Quantity No: PO fluids encouraged Sufficient Number of Voids Urinal 3 Vital Signs Temp Pulse Resp BP Pulse Ox 36.4 C 49 L 16 96/45 L 94 09/11/17 08:09 09/11/17 08:09 09/11/17 08:09 09/11/17 08:09 09/11/17 08:09 Laboratory Results 09/10/17 05:05 ICD10 Worksheet Patient Problems: Problems Problem Status Onset Basilar skull fracture Acute Petechial hemorrhage Acute Seizure disorder Acute Abscess of left upper extremity Acute
[2017-09-11] MEDS ORDERED: CIPROFLOXACIN HCL/DEXAMETH 7.5 ML OTIC DROPS LEFTEAR SCH (09:00)
[2017-09-11] MEDS: ACETAMINOPHEN 325 MG TAB PO PRN (09:12)
[2017-09-11] MEDS: levETIRAcetam 500 MG TAB PO SCH (09:12)
[2017-09-11] MEDS: ONDANSETRON DISINTEGRATING 4 MG TAB PO PRN (10:46)
--- NOTE | 2017-09-11 17:14 | PDDCSUM ---
Discharge Summary Discharge Summary: DISCHARGE SUMMARY FOLLOW-UP ITEMS: Outpatient neurology seizure workup DATE OF ADMISSION: 09/08/2017 DATE OF DISCHARGE: 09/11/2017 DISCHARGE DIAGNOSES: 1. Acute head trauma with closed head injury/traumatic brain injury 2. Acute intracranial hemorrhage with left-sided subdural hematoma 3. Seizure disorder with acute seizure 4. Acute metabolic acidosis 5. Acute left basilar skull fracture 6. Chronic nausea with suspected cyclic vomiting syndrome and possible hyper emesis secondary to cannabinoids CONSULTATIONS: Neurosurgery, Neurology PROCEDURES / IMAGING: Had MRI demonstrating left-sided temporal subdural hematoma with small amount of edema CHIEF COMPLAINT: Acute fall, head injury SUBJECTIVE: Patient is feeling well at time of discharge, he has some ongoing nausea, some ongoing head pain located in the left ear PHYSICAL EXAM ON DISCHARGE: Systolic blood pressure is 120, heart rate 50, afebrile overnight, satting well on room air, alert awake oriented x3, bowel sounds are present, abdomen is soft , nontender, affect is appropriate, alert awake oriented x3, ecchymoses over left temporal area HOSPITAL COURSE BY PROBLEM: The patient presented with acute head trauma status post unwitnessed fall, with resultant seizure-like activity reported by a witness. Is unclear whether the patient experienced an acute seizure which precipitated his fall, or whether his seizure-like activity was secondary to his closed head injury. The patient was brought to [facility] and was noted to have an acute intracranial hemorrhage with a left-sided subdural hematoma and a small amount of edema on head CT and confirmed with MRI imaging. The patient had no evidence of intracranial masses, and his bleed stabilized on imaging. He was monitored in the step-down unit with q.2 hours neuro checks, and was placed on Keppra as his antiepileptic. Prior to his presentation, the patient had not been receiving any antiepileptics, but he had a reported seizure disorder, which was thought to be secondary to traumatic brain injury experienced in childhood. He has been actively seeking outpatient seizure workup through our Neurology Clinic, and has yet to complete all appropriate components of that workup. He was seen consultation by Dr. Clive Bowden, and he recommended ongoing use of Keppra, outpatient neurology follow-up. He has also seen consultation by Neurosurgery, who recommended outpatient follow-up with Dr. Toi Locke in 4 weeks, given that the patient's intracranial bleed stabilized. The patient did require ongoing pain management for his left basilar skull fracture, with oxycodone immediate release, bowel regimen to prevent constipation, as well as Ciprodex ear drops on the left with outpatient ENT evaluation recommended. The patient also received IV fluids for his presenting acute metabolic acidosis and his oral intake was stabilized prior to discharge. The patient did have intermittent nausea, which could be his chronic nausea exacerbated by his closed head injury, and I recommended as needed Zofran and Phenergan. I suspect the patient does have an underlying cannabinoid hyperemesis syndrome, given his a.m. nausea, alleviated by hot showers, and somewhat modulated by cannabinoid use. I recommended a 3 month trial of abstinence comma to gauge effect. DISCHARGE MEDICATIONS: Please see official discharge medication reconciliation sheet in chart , as needed Zofran and Phenergan, scheduled Keppra, as needed oxycodone immediate release with Senokot S. DISCHARGE INSTRUCTIONS: Patient should follow up with Dr. Clive Bowden in the short term, Dr. Toi Locke thereafter. TIME SPENT: Greater than 30 minutes were spent on direct patient care, as well as discharge planning and preparation.
--- NOTE | 2017-09-12 13:23 | ASDISCHSUM ---
Discharge Information Plan Status:Home with No Needs Medically Cleared to Leave:09/10/2017 Discharge Date:09/11/2017 01:09 PM CM D/C Disposition:Home, Routine, Self-Care ADT D/C Disposition:Home, Routine, Self-Care Projected Discharge Date:09/11/2017 12:00 AM Transportation at D/C: Discharge Delay Reason: Follow-Up Date:09/11/2017 12:00 AM Discharge Slot: Final Diagnosis: Placement Information Patient Contact Information Contact Name:CLAYTON Relationship: Address: Work Phone: City: [facility] Phone: State/Zip Code: Email: Financial Information Financial Class: Primary Plan Desc:MEDICAID HEALTH FIRST [facility] Primary Plan Number:[id number] Secondary Plan Desc: Secondary Plan Number: Assessment Information [facility] Progress Note CM Note CM Note Notes: Patient presents to the ED via EMS after being found down outside of his apartment building. Patient may have had a seizure and hit his head. Patient awake, alert but appearing postictal, able to follow basic commands and give permission to call his father Jacek ([phone]) and sister Lucina ([phone]). Lucina arrived to the ED shortly after being called and this CM spoke with Jacek, who is on his way to the ED. EMS spoke with patient's girlfriend, Meenakshi ([phone]) over the phone and was able to learn that patient had a fall and first time seizure about a month ago. Patient followed up with neurologist Dr Diaz and received an EEG. Exact DC needs unknown at this time, CM to follow. Date Signed: 09/08/2017 02:47 PM Electronically Signed By:Mary Grace Rachel RN [facility] Emergency dept visits in Answers: 2 last 6 months Score: 2 Date Signed: 09/08/2017 02:48 PM Electronically Signed By:Mary Grace Rachel RN [facility] CM Progress Note CM Note CM Note Notes: 27 year old male found down after sz and head injury. Admitted for ICB, skull fx, sz. Has a hx of CHI as a child. Therapies have been ordered for possible discharge needs. CM to follow. Date Signed: 09/09/2017 09:25 AM Electronically Signed By:Abeba Segura LCSW [facility] JAK Progress Note CM Note CM Note Notes: Spoke with patient, his sister, Lucina and his mother Kelly. Patient was not feeling well and stated he did not wish to participate. Mother and sister than gave some hx and had questions. Patient does not want to do any inpatient rehab but may be willing to do an outpatient program if he needs it at d/c. 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 Patient is very stressed by his medical bills and does not want to get anymore. Patient was qualified for Medicaid the last time he was in the hospital so most expenses should be covered. Mother Kelly has to return to [place] tomorrow. She was given my card so she can call with her questions. Patient and family are waiting to talk to Dr. Bowden today. CM will follow. Date Signed: 09/10/2017 01:11 PM Electronically Signed By:Juanita Wynne LCSW Case Management Discharge Plan Note Case Management Discharge Discharge Order Complete? Answers: Yes Patient to Obtain Answers: Independently Medications Transportation Arranged Answers: Family/Friends EMTALA Complete Answers: No Case Management Transport Answers: No Form Complete Faxed Final Orders Answers: No Agency/Facility Transfer Answers: No Report Printed & Faxed to Receiving Agency Family Notified Answers: Yes Notes: Parents and sister are at patient bedside. Discharge Comments Notes: Patient being d/c'ed independent to home today. No PT needs per Regine. Patient can do PT on an outpatient basis. Date Signed: 09/11/2017 11:53 AM Electronically Signed By:Juanita Wynne LCSW Intervention Information
== END 2017-09-11 13:09 | disposition home or self-care (01) | DRG 85 ==
LOC: EDUNIT# → F2N 17:01 → OBSVTOIN 09-09 15:22
PROVIDERS: ADMIT Student in an Organized Health Care Education/Training Program; ATTEND Student in an Organized Health Care Education/Training Program
DX: S06.350A Traumatic hemorrhage of left cerebrum without loss of consciousness, initial encounter (principal); S06.5X0A Traumatic subdural hemorrhage without loss of consciousness, initial encounter; S06.1X0A Traumatic cerebral edema without loss of consciousness, initial encounter; S02.102A Fracture of base of skull, left side, initial encounter for closed fracture; W18.39XA Other fall on same level, initial encounter; Y93.C2 Activity, hand held interactive electronic device; Y92.038 Other place in apartment as the place of occurrence of the external cause; Y99.8 Other external cause status; R40.2411 Glasgow coma scale score 13-15, in the field [EMT or ambulance]; G40.409 Other generalized epilepsy and epileptic syndromes, not intractable, without status epilepticus; E87.2 Acidosis; R11.10 Vomiting, unspecified; Z87.820 Personal history of traumatic brain injury
CPT/HCPCS: 82947-QW; 92507-GN; 92523-GN; 97161-GP; 97164-GP; 97165-GO; 97530-GO; 97535-GO; A9585; G0378; G0480; J1170; J1953; J2060; J2405; J2550; J2765; J3010